=== PATIENT | male | born 1940 | race African-American/Black ===

== ENCOUNTER 2016-07-18 15:17 | Emergency (ER) | payer OTHER, MEDICAID ==
[2016-07-18 15:23] VITALS: BP 121/72; BMI 22.5
[2016-07-18] MEDS ORDERED: TORADOL 60 MG VIAL IM ONE (15:50)
[2016-07-18] MEDS ORDERED: TORADOL 60 MG VIAL ONE (15:50)
--- NOTE | 2016-07-18 15:51 | DR.EXTPAIN ---
HPI - Time seen Time seen: 15:39 - PCP Primary Care Physician: FARZANEH LARA - Complaint/Symptoms Chief Complaint Doctor Comments: Patient with a history of osteoarthritis of left knee. he states that he received knee injection a few weeks ago. He takel meloxicam 15mg daily by history. Chief Complaint:: EMS CALLED OUT TO PT HAVING LEFT KNEE PAIN UPON ARRIVAL PT WAS SITTING ON PORCH AND HE WAS NOT ABLE TO WALK PT ASSISTED TO STRETCHER PER EMS. - Source History Provided: Patient - Mode of arrival Mode of Arrival: EMS - Timing Onset of Chief Complaint: 07/17/16 PMH - PMH Past Medical History: Yes Past Medical History: Arthritis, CHF, COPD, Coronary Artery Disease, Dyslipidemia, GERD, Gout, Hypertension, Renal Disease Past Surgical History: Yes Surgical History: Other Past Surgical History Comment: PACEMAKER - Family History History of Family Medical Conditions: Yes Family Medical History: Diabetes Mellitus, [place], Coronary Artery Disease - Social History Does patient currently use any type of tobacco product: Yes Have you used tobacco products in the last 12 months: Yes Type of Tobacco Use: Cigarettes How many years tobacco product used: 50 Does any household member use tobacco: No Alcohol Use: None Do you use any recreational Drugs:: No Lives With: Family Lives Where: Home - infectious screening In the last 2 months have you had wt loss of >10#?: NO Have you had fever, night sweats or hemotysis?: No Have you traveled outside the country in the last 6 months?: No Isolation: Standard ROS - Review of Systems Constitutional: No Symptoms Reported Eyes: No Symptoms Reported ENTM: No Symptoms Reported Respiratoy: No Symptoms Reported Cardiovascular: No Symptoms Reported Gastrointestinal/Abdominal: No Symptoms Reported Genitourinary: No Symptoms Reported Neurological: No Symptoms Reported Musculoskeletal: No Symptoms Reported Integumentary: No Symptoms Reported Hematologic/Lymphatic: No Symptoms Reported Endocrine: No Symptoms Reported Psychiatric: No Symptoms Reported All Other Systems: Reviewed and Negative PE - Vital Signs Vitals: Pulse Rate 70 Respiratory Rate 22 Blood Pressure [Left Arm] 137/78 Blood Pressure [Right Arm] 140/88 Blood Pressure [Standing] 120/73 Blood Pressure [Sitting] 123/81 Blood Pressure [Lying] 124/81 Blood Pressure 121/72 O2 Sat by Pulse Oximetry 93 - Head Head Exam: Normal Inspection, Atraumatic - Eyes Eye exam: Normal Appearance, PERRL, EOMI - ENT ENT Exam: Normal Exam - Neck Neck Exam: Normal Inspection, Full ROM - Chest Chest Inspection: Normal Inspection - Respiratory Respiratory Exam: Normal Lung Sounds Bilat Respiratory Exam: Bilateral Clear to Auscultation - Cardiovascular Cardiovascular Exam: Regular Rate, Normal Rhythm - Abdominal Exam Abdominal Exam: Normal Inspection Abdominal Tenderness: negative: RUQ, RLQ, LUQ, LLQ, Epigastrium, Suprapubic, Diffuse, Mild, Moderate, Severe, Other - Extremities Extremities Exam: Joint Swelling (left knee) - Upper Extremities Shoulder Exam: Normal Inspection Arm Exam: Normal Inspection Elbow Exam: Normal Inspection Forearm Exam: Normal Inspection Hand Exam: Normal Inspection Neuromotor Exam: Normal Exam Neurosensory Exam: Normal Exam Hand Tendon Exam: Flexor Digitorium Profundus (Location) Upper Ext. Vascular Exam: Capillary Refill - Lower Extremities Hip/Pelvis Exam: Normal Inspection Upper Leg Exam: Normal Inspection Knee Exam: Tenderness, Deformity (left knee swollen, tender to palpation). negative: Effusion Lower Leg Exam: Normal Inspection Ankle Exam: Normal Inspection Foot/Toe Exam: Normal Inspection Neurovascular/Tendon Exam: Normal Capillary Refill Gait Exam: Antalgic - Back Back Exam: Normal Inspection - Neurological Neurological Exam: Alert, Oriented X3, CN II-XII Intact - Psychiatric Psychiatric Exam: Normal Affect - Skin Skin Exam: Warm, Dry, Intact Type of Lesion: Rash Distribution: Generalized - Diagnosis Discharge Problem: Osteoarthritis Qualifiers: Osteoarthritis location: knee Osteoarthritis type: primary Laterality: left Qualified Code(s): M17.12 - Unilateral primary osteoarthritis, left knee - Discharge Plan Condition: Stable - Follow ups/Referrals Follow ups/Referrals: Edwin Akhtar [Primary Care Provider] - 3 days - Instructions
== END 2016-07-18 16:15 | disposition home or self-care (01) ==
LOC: ER 15:23
DX: M17.12 Unilateral primary osteoarthritis, left knee (principal)
CPT/HCPCS: 96372; 99282; J1885

== ENCOUNTER 2016-08-19 20:39 | Emergency (ER) | payer OTHER, MEDICAID ==
[2016-08-19] MEDS ORDERED: SOLU-Medrol 125 MG VIAL ONE (20:47)
[2016-08-19 20:51] VITALS: BMI 25.0
[2016-08-19] MEDS ORDERED: SOLU-Medrol 125 MG VIAL IVP ONE (20:51)
[2016-08-19] MEDS ORDERED: DUONEB 0.5 MG/3 MG ONE (20:52)
--- NOTE | 2016-08-19 21:03 | RAD ---
Chest, one view Indication: Respiratory distress, shortness breath Comparison: 03/02/2016 Findings: Cardiac silhouette enlargement and cardiac leads appear stable. There is dense airspace di sease of the right mid to lower lung with hazy interstitial and airspace opacities of the left lung. No large pleural effusion or pneumothorax. Impression: Dense right lung opacities with mild left-sided disease, most suggestive for pneumonia. Asymmetric edema related to CHF is not completely excluded given cardiomegaly. Correlation and lorie nued radiographic followup recommended. Reported By:
--- NOTE | 2016-08-19 21:07 | DR.GENAD ---
HPI - PCP Primary Care Physician: FARZANEH - HPI Comment HPI Comment: PATIENT HERE VIA EMS IN SEVERE RESPIRATORY DISTRESS. DENIES FEVER. ON HOME OXYGEN BUT HIS MACHINE HAVE NOT BEING FUNCTIONING. - Complaint/Symptoms Chief Complaint Doctors Comments: REWSPIRATORY DISTRESS, COLD Chief Complaint:: PT STARTED HAVING BREATHING PROBLEMS THIS AM GOTTEN WORSE THRUOUT THE DAY. - Nurses notes reviewed Nurses Notes Review: Yes - Source History Provided: EMS - Mode of Arrival Mode of Arrival: EMS - Timing Onset of Chief Complaint: 08/19/16 Came on: Gradually - Duration Duration: Days - Severity Severity: Severe PMH - PMH Past Medical History: Yes Past Medical History: Alzheimers, Arthritis, CHF, COPD, Coronary Artery Disease , Dyslipidemia, GERD, Gout, Hypertension, Renal Disease Past Surgical History: Yes Surgical History: Other - Family History History of Family Medical Conditions: Yes Family Medical History: Diabetes Mellitus, [place], Coronary Artery Disease - Social History Do you use any recreational Drugs:: No Lives With: Family Lives Where: Home - infectious screening In the last 2 months have you had wt loss of >10#?: NO Have you had fever, night sweats or hemotysis?: No Have you traveled outside the country in the last 6 months?: No Isolation: Standard ROS - Review of Systems Constitutional: Chills, Weakness, Fatigue, Loss of Appetite. negative: Diaphoresis, Fever Eyes: negative: Eye Pain, Discharge ENTM: Nose Discharge, Nose Congestion. negative: Ear Pain, Throat Pain Respiratoy: Productive Cough, Non-Productive Cough, Short of Breath, Wheezing, Other (USING ). negative: Hemoptysis Cardiovascular: Chest Pain Gastrointestinal/Abdominal: negative: Abdominal Pain, Diarrhea, Nausea, Vomiting Genitourinary: Other (DECREASE URINE OUT PUT.). negative: Dysuria, Frequency, Hematuria Neurological: Weakness Musculoskeletal: Back Pain, Muscle Pain Integumentary: Lesions (LEFT BIG TOE. NECROTIC AREA PRESENT.) Hematologic/Lymphatic: Easy Bruising Endocrine: No Symptoms Reported All Other Systems: Reviewed and Negative PE - Vital Signs Vitals: Temperature 97.6 F Pulse Rate [Right Brachial] 70 Pulse Rate 72 Respiratory Rate 12 Blood Pressure [Left Arm] 147/88 Blood Pressure [Right Arm] 140/88 Blood Pressure [Standing] 120/73 Blood Pressure [Sitting] 123/81 Blood Pressure [Lying] 124/81 Blood Pressure 180/101 O2 Sat by Pulse Oximetry 100 - General Limitations: Altered Mental Status (PATIENT SLIGHTLY CONFUSE.) General Appearance: Alert, Anxious, In Distress - Head Head Exam: Normal Inspection - Eyes Eye exam: Normal Appearance, PERRL, EOMI. negative: Scleral Icterus, Conjunctival Injection, Nystagmus - ENT ENT Exam: Normal Oropharynx, Normal External Ear Exam, Mucous Membranes Dry External Ear Exam: Normal External Inspection. negative: Auricular Hematoma, Auricular Trauma, Mastoid Tenderness, Pain with Movement, External Tenderness, Periauricular Adenopathy TM/Canal Exam: Bilateral Normal Nose Exam: Normal Nose Exam Mouth Exam: Other (POOR DENTAL CARE, ). negative: Trismus, Lip Swelling, Tongue Elevation, Tongue Swelling Throat Exam: negative: Normal Inspection, Tonsillar Erythema, Tonsillar Exudate , R Peritonsillar Mass, L Peritonsillar Mass - Neck Neck Exam: Trachea Midline. negative: Tenderness, Meningismus, Lymphadenopathy - Chest Chest Inspection: Symmetric Chest Wall Rise - Respiratory Respiratory Exam: Accessory Muscle Use, Prolonged Expiratory Phase, Respiratory Distress. negative: Chest Wall Tenderness Respiratory Exam: Bilateral Wheezing, Bilateral Rhonchi, Right Rales, Upper Wheezing, Upper Rhonchi, Lower Wheezing, Lower Rhonchi - Cardiovascular Cardiovascular Exam: Regular Rate, Normal Rhythm, Normal Heart Sounds - Abdominal Exam Abdominal Exam: Normal Bowel Sounds, Soft. negative: Tenderness - Extremities Extremities Exam: Other (SMALL NECROTIC AREA ON LEFT BIG TOE.). negative: Edema - Back Back Exam: Normal Inspection - Neurologic Neurological Exam: Alert, CN II-XII Intact, Reflexes Normal. negative: Oriented X3, Motor Sensory Deficit - Psychiatric Psychiatric Exam: Anxious - Skin Skin Exam: Other (LT BIG TOE SMALL NECROTIC AREA.) [facility] - Additional Information Additional Information Obtained From: Family - Differential Diagnosis Differential Diagnosis: RESPIRATORY FAILURE, PNEUMONIA, COPD, CHF Course - Treatment Treatment: SEE ORDERS. PATIENT INTUBATED IN ED. DUO NEB, CONTINOUS NEB, ROCEPHIN , IV LEVAQUIN GIVEN IN ED. - Consultation Consultation Comments: DISCUSS PATIENT WITH DR MATSON/PARALEGAL INSTRUCTOR DR. RAMIREZ TRANSFER PATIENT TO HIGHER LEVEL OF CARE FACILITY. DR. NUNEZ, [facility] , CERTIFIED NURSES' AIDE ACCEPTED PATIENT FOR TRANSFER. - Education/Counseling Education/Counseling: Patient, Family, Education Educated On: Diagnosis ROR - Labs Reviewed Laboratory Results Reviewed?: Yes Result Diagrams: 08/19/16 20:35 08/19/16 20:35 Laboratory: WBC 6.7 X10^3/uL (3.6-10.0) 08/19/16 20:35 RBC 4.02 X10^6/uL (4.7-6.0) L 08/19/16 20:35 Hgb 11.0 g/dL (13.5-18.0) L 08/19/16 20:35 Hct 35.9 % (42.0-54.0) L 08/19/16 20:35 MCV 89.2 fL (80.0-100.0) 08/19/16 20:35 MCH 27.4 pg (27.0-34.0) 08/19/16 20:35 MCHC 30.7 g/dL (33.0-35.0) L 08/19/16 20:35 RDW 19.6 % (11.6-16.5) H 08/19/16 20:35 Plt Count 101 X10^3/uL (150.0-450.0) L 08/19/16 20:35 MPV 8.7 fL (7.4-11.0) 08/19/16 20:35 Neut % 60.2 % (42.0-75.0) 08/19/16 20:35 Lymph % 28.1 % (21.0-51.0) 08/19/16 20:35 Grand % 8.5 % (0.0-13.0) 08/19/16 20:35 Eos % 2.4 % (0.9-2.9) 08/19/16 20:35 Baso % 0.8 % (0.2-1.0) 08/19/16 20:35 Neut # 4.1 x10^3/uL (2.2-4.8) 08/19/16 20:35 Lymph # 1.9 X10^3/uL (1.3-2.9) 08/19/16 20:35 Grand # 0.6 x10^3/uL (0.3-0.8) 08/19/16 20:35 Eos # 0.2 x10^3/uL (0.0-0.2) 08/19/16 20:35 Baso # 0.1 X10^3/uL (0.0-0.1) 08/19/16 20:35 Absolute Nucleated RBC 0.2 /100WBC 08/19/16 20:35 Sample Site Rrda 08/20/16 00:50 ABG pH 7.380 (7.35-7.45) 08/20/16 00:50 ABG pCO2 36.0 mmHg (35.0-45.0) 08/20/16 00:50 ABG pO2 54.0 mmHg (80.0-100.0) L 08/20/16 00:50 ABG HCO3 21.3 mmol/L (22-26) L 08/20/16 00:50 ABG O2 Saturation 87.0 % (90-100) L 08/20/16 00:50 ABG Base Excess -3.3 mmol/L (-2.0-2.0) L 08/20/16 00:50 Artemio Test Pos 08/20/16 00:50 A-a Gradient 614.0 mmHg 08/20/16 00:50 FiO2 100 08/20/16 00:50 Blood Gas Comments Shirley abg well-js 08/20/16 00:50 Sodium 146 mmol/L (136-145) H 08/19/16 20:35 Corrected Sodium 147 mmol/L (136-145) H 08/19/16 20:35 Potassium 5.5 mmol/L (3.5-5.1) H 08/19/16 20:35 Chloride 112 mmol/L (98-107) H 08/19/16 20:35 Carbon Dioxide 23.1 mmol/L (21-32) 08/19/16 20:35 BUN 50 mg/dL (7-18) H 08/19/16 20:35 Creatinine 3.00 mg/dL (0.70-1.30) H 08/19/16 20:35 Est GFR (MDRD) Af Amer 26 (>60) L 08/19/16 20:35 Est GFR (MDRD) Non-Af 22 (>60) L 08/19/16 20:35 Glucose 136 mg/dL (65-99) H 08/19/16 20:35 Lactic Acid 2.0 mmol/L (0.4-2.0) 08/19/16 20:35 Calcium 9.5 mg/dL (8.5-10.1) 08/19/16 20:35 Corrected Calcium TNP 08/19/16 20:35 Total Bilirubin 2.00 mg/dL (0.2-1.0) H 08/19/16 20:35 AST 20 Units/L (15-37) 08/19/16 20:35 ALT 18 Units/L (12-78) 08/19/16 20:35 Alkaline Phosphatase 144 Units/L (46-116) H 08/19/16 20:35 Creatine Kinase 127 Units/L (39-308) 08/19/16 20:35 CK-MB (CK-2) 1.3 ng/mL (0-4.0) 08/19/16 20:35 CK/CKMB % Calc 1.0 % (<4) 08/19/16 20:35 Troponin I 0.06 ng/mL (0-1.5) 08/19/16 20:35 B-Natriuretic Peptide 2490 pg/mL (0-79) H* 08/19/16 20:35 Total Protein 9.0 g/dL (6.4-8.2) H 08/19/16 20:35 Albumin 3.6 g/dL (3.4-5.0) 08/19/16 20:35 Globulin 5.4 g/dL (2.5-4.5) H 08/19/16 20:35 Albumin/Globulin Ratio 0.7 Ratio (1.1-2.1) L 08/19/16 20:35 Specimen Type Catherized urine 08/19/16 22:57 Urine Color Yellow (YELLOW) 08/19/16 22:57 Urine Appearance Slightly hazy (CLEAR) 08/19/16 22:57 Urine pH 5.0 (5.0 - 8.0) 08/19/16 22:57 Ur Specific [employer] 1.015 (1.000-1.030) 08/19/16 22:57 Urine Protein 1+ (NEGATIVE) 08/19/16 22:57 Urine Glucose (UA) Negative (NEGATIVE) 08/19/16 22:57 Urine Ketones Negative (NEGATIVE) 08/19/16 22:57 Urine Occult Blood 1+ (NEGATIVE) 08/19/16 22:57 Urine Nitrite Negative (NEGATIVE) 08/19/16 22:57 Urine Bilirubin Negative (NEGATIVE) 08/19/16 22:57 Urine Urobilinogen Normal (NORMAL) 08/19/16 22:57 Ur Leukocyte Esterase 1+ (NEGATIVE) 08/19/16 22:57 Urine RBC 0-3 /HPF (NEGATIVE) 08/19/16 22:57 Urine WBC 6-8 /HPF (NEGATIVE) 08/19/16 22:57 Ur Squamous Epith Cells Rare /HPF (NEGATIVE) 08/19/16 22:57 Amorphous Sediment Trace /HPF (NEGATIVE) 08/19/16 22:57 Urine Bacteria 1+ /HPF (NEGATIVE) 08/19/16 22:57 Ur Culture Indicated? Yes/culture set up 08/19/16 22:57 - XRAY XRAY Interpreted by: Radiologist XRAY Findings: REPORT NOTED - EKG Rhythm: Paced (EKG NOTED) - Diagnosis Discharge Problem: COPD exacerbation Acute respiratory failure Qualifiers: Respiratory failure complication: hypoxia Qualified Code(s): J96.01 - Acute respiratory failure with hypoxia Pneumonia Qualifiers: Pneumonia type: due to unspecified organism Laterality: right Lung location: lower lobe of lung Qualified Code(s): J18.1 - Lobar pneumonia, unspecified organism UTI (urinary tract infection) Qualifiers: Urinary tract infection type: site unspecified Hematuria presence: without hematuria Qualified Code(s): N39.0 - Urinary tract infection, site not specified CHF (congestive heart failure) Qualifiers: Congestive heart failure type: combined Congestive heart failure chronicity: acute on chronic Qualified Code(s): I50.43 - Acute on chronic combined systolic (congestive) and diastolic (congestive) heart failure - Discharge [facility] Condition: Stable - Follow ups/Referrals Follow ups/Referrals: Edwin Akhtar [Primary Care Provider] - 3 days - Instructions
[2016-08-19 21:10] LABS: ABG BASE EXCESS -5.3 mmol/L (-2.0-2.0); ABG HCO3 21.2 mmol/L (22-26)
[2016-08-19 21:13] LABS: ABG ALLEN TEST POS
[2016-08-19 21:28] LABS: BLOOD UREA NITROGEN 50 mg/dL (7-18); CALCIUM 9.5 mg/dL (8.5-10.1); CARBON DIOXIDE 23.1 mmol/L (21-32); CHLORIDE 112 mmol/L (98-107); COR NA(FOR HYPERGLY) 147 mmol/L (136-145); GLUCOSE 136 mg/dL (65-99); TROPONIN I 0.06 ng/mL (0-1.5); eGFR BLACK RACES 26 (>60); eGFR NON BLACK RACES 22 (>60)
[2016-08-19 21:32] LABS: BASOPHILS # (AUTO) 0.1 X10^3/uL (0.0-0.1); BASOPHILS % (AUTO) 0.8 % (0.2-1.0); EOSINOPHILS # (AUTO) 0.2 x10^3/uL (0.0-0.2); EOSINOPHILS % (AUTO) 2.4 % (0.9-2.9); HEMATOCRIT 35.9 % (42.0-54.0); LYMPHOCYTES # (AUTO) 1.9 X10^3/uL (1.3-2.9); LYMPHOCYTES % (AUTO) 28.1 % (21.0-51.0); MEAN CORPUSCULAR HEMOGLOBIN 27.4 pg (27.0-34.0); MEAN CORPUSCULAR HGB CONC 30.7 g/dL (33.0-35.0); MEAN CORPUSCULAR VOLUME 89.2 fL (80.0-100.0); MEAN PLATELET VOLUME 8.7 fL (7.4-11.0); MONOCYTES # (AUTO) 0.6 x10^3/uL (0.3-0.8); MONOCYTES % (AUTO) 8.5 % (0.0-13.0); NEUTROPHILS # (AUTO) 4.1 x10^3/uL (2.2-4.8); NEUTROPHILS % (AUTO) 60.2 % (42.0-75.0); PLATELET COUNT 101 X10^3/uL (150.0-450.0); RED BLOOD COUNT 4.02 X10^6/uL (4.7-6.0); RED CELL DISTRIBUTION WIDTH 19.6 % (11.6-16.5); WHITE BLOOD COUNT 6.7 X10^3/uL (3.6-10.0)
[2016-08-19 21:33] LABS: ALANINE AMINOTRANSFERASE 18 Units/L (12-78); ALBUMIN 3.6 g/dL (3.4-5.0); ALKALINE PHOSPHATASE 144 Units/L (46-116); ASPARTATE AMINO TRANSFERASE 20 Units/L (15-37); CREATINE KINASE 127 Units/L (39-308); CREATINE KINASE MB 1.3 ng/mL (0-4.0)
[2016-08-19] MEDS ORDERED: VERSED IVP ONE (21:35)
[2016-08-19 21:39] LABS: SODIUM 146 mmol/L (136-145)
[2016-08-19 21:43] LABS: B-TYPE NATRIURETIC PEPTIDE 2490 pg/mL (0-79)
[2016-08-19] MEDS ORDERED: LASIX IVP ONE ×2 (21:44)
[2016-08-19] MEDS ORDERED: VERSED ONE ×2 (21:56→22:24)
[2016-08-19] MEDS ORDERED: QUELICIN (OR ANECTINE) ONE (21:57)
[2016-08-19] MEDS: QUELICIN (OR ANECTINE) IVP ONE (21:57)
[2016-08-19] MEDS ORDERED: NS 100 ML IV 100 ML IV ONE (22:23)
[2016-08-19] MEDS ORDERED: DIPRIVAN PREMIX 1 GM IV 1,000 MG/100 ML VIAL ONE (22:27)
--- NOTE | 2016-08-19 22:29 | RAD ---
EXAM: Chest X-ray INDICATION: Tube placement COMPARISION: Prior exam from earlier on the same day. TECHNIQUE: AP, single view FINDINGS: The endotracheal tube tip is 7 cm above the kimo. There is dense consolidation throughout the righ t lung which is increased compared to the prior exam. There is a right pleural effusion. The heart i s enlarged and there central vascular congestion. Left-sided pacemaker is present. The regional skel eton is intact. IMPRESSION: There is increasing consolidation throughout the right lung. The heart is enlarged and there central vascular congestion and interstitial edema. Reported By:
[2016-08-19] MEDS ORDERED: NS 250 ML IV 250 ML IV ONE (22:37)
[2016-08-19] MEDS ORDERED: VERSED 100 MG in NS 100 ML IV 80 ML IV PRN (22:38)
[2016-08-19 22:40] LABS: ABG BASE EXCESS -4.8 mmol/L (-2.0-2.0); ABG HCO3 22.1 mmol/L (22-26)
[2016-08-19 22:41] LABS: FRACTIONATED INSPIRED OXYGEN 100
[2016-08-19 22:42] LABS: ABG ALLEN TEST POS
[2016-08-19] MEDS ORDERED: ROCEPHIN 1 GM IV PREMIX * OUT OF STOCK 50 ML IV ONE (22:46)
[2016-08-19] MEDS ORDERED: ROCEPHIN VIAL 1 GM 1 GM in NS 50 ML IV + SPIKE MINIBAG* 50 ML IV ONE (22:50)
[2016-08-19] MEDS ORDERED: NS 250 ML IV 250 ML IV SCH (23:00)
[2016-08-19 23:08] LABS: BILIRUBIN,URINE NEGATIVE (NEGATIVE); BLOOD/HEMOGLOBIN,URINE 1+ (NEGATIVE); GLUCOSE, URINE NEGATIVE (NEGATIVE); KETONES,URINE NEGATIVE (NEGATIVE); LEUKOCYTE ESTERASE ,URINE 1+ (NEGATIVE); NITRITES,URINE NEGATIVE (NEGATIVE); PROTEIN,URINE 1+ (NEGATIVE); UROBILINOGEN,URINE NORMAL (NORMAL)
[2016-08-19 23:15] LABS: APPEARANCE,URINE SLIGHTLY HAZY (CLEAR); COLOR,URINE YELLOW (YELLOW)
[2016-08-19 23:16] LABS: AMORPHOUS SEDIMENT,UR TRACE /HPF (NEGATIVE); BACTERIA,URINE 1+ /HPF (NEGATIVE); RBC,URINE 0-3 /HPF (NEGATIVE); SQUAMOUS EPITHELIAL CELL,UR RARE /HPF (NEGATIVE)
[2016-08-19 23:20] LABS: ABG BASE EXCESS -4.4 mmol/L (-2.0-2.0)
[2016-08-19 23:21] LABS: ABG ALLEN TEST POS; FRACTIONATED INSPIRED OXYGEN 100
[2016-08-19] MEDS ORDERED: LEVAQUIN PREMIX IV 500 MG 500 MG/100 ML BAG IV ONE (23:52)
[2016-08-19] MEDS ORDERED: ZITHROMAX INJ 500 MG VIAL 500 MG in NS 250 ML IV 250 ML IV SCH (23:52)
[2016-08-20] MEDS ORDERED: LEVAQUIN PREMIX IV 500 MG 500 MG/100 ML BAG IV ONE (00:01)
[2016-08-20 00:59] LABS: ABG BASE EXCESS -3.3 mmol/L (-2.0-2.0); ABG HCO3 21.3 mmol/L (22-26)
[2016-08-20 01:00] LABS: ABG ALLEN TEST POS; FRACTIONATED INSPIRED OXYGEN 100
[2016-08-20 01:24] VITALS: BP 147/88
[2016-08-20] MEDS: QUELICIN (OR ANECTINE) IVP ONE (02:08)
== END 2016-08-20 01:30 | disposition short-term general hospital (02) ==
LOC: ER 20:45
PROC: 0T9B70Z Drainage of Bladder with Drainage Device, Via Natural or Artificial Opening (ICD-10-PCS; principal; 2016-08-19)
PROC: 0BH17EZ Insertion of Endotracheal Airway into Trachea, Via Natural or Artificial Opening (ICD-10-PCS; principal; 2016-08-19)
DX: J80 Acute respiratory distress syndrome (principal); J18.1 Lobar pneumonia, unspecified organism; N39.0 Urinary tract infection, site not specified; I50.43 Acute on chronic combined systolic (congestive) and diastolic (congestive) heart failure; J44.1 Chronic obstructive pulmonary disease with (acute) exacerbation
CPT/HCPCS: 31500; 36415; 36600; 51702; 71010; 80053; 81001; 82550; 82553; 82803; 83605; 83880; 84484; 85025; 87086; 93005; 93010; 96365; 96367; 96374; 96375; 99284; 99285; 99291; 99292; A4222; J0330; J0696; J1940; J1956; J2250; J2930; J3490; J7620

== ENCOUNTER → 2017-05-31 | Outpatient (CLI) | payer OTHER, MEDICAID ==
--- NOTE | 2017-05-31 10:40 | CT ---
HISTORY: Abdominal aortic aneurysm with hypertension and renal disease. Study: CT chest without contrast Comparison: CT chest dated January 18, 2012. Technique: Multiple axial images of the chest were obtained from the thoracic inlet to the upper abdo men without the administration of IV contrast. MIP images were obtained. Dose reduction techniques in cluding Automated Exposure Control (AEC) and adjustment of mA and kV were utilized. Findings: Study limited secondary to lack of IV contrast. The mediastinum does not demonstrate significant pathological lymphadenopathy. 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 Calcification of the false lumen with likely associated thrombus is not significantly changed given technique and limitations of study. Aneurysmal dilatation of the descending thoracic a james measures 6.1 x 6.9 cm in greatest dimension (previously measured 6.0 x 5.8 cm). Cardiomegaly. Biapical scarring. Calcified right lower lobe pulmonary nodule. No suspicious pulmonary nodule, mass, focal consolidation, or pneumothorax. Persistent small left pleural effusion. Diverticular disease o f the visualized large bowel without evidence of diverticulitis. Chronic atrophy of the kidneys. Marcie ining upper abdominal structures are unremarkable. Degenerative changes of the spine. No aggressive o sseous lesions. IMPRESSION: 1. Enlarging thoracic aortic aneurysm, which measures 6.9 cm in greatest dimension. 2. Other chronic findings as above. Reported By:
== END ==
LOC: RAD 09:10
PROVIDERS: ATTEND Physician Assistant
DX: I71.2 Thoracic aortic aneurysm, without rupture (principal)
CPT/HCPCS: 71250

== ENCOUNTER 2017-07-07 16:08 | Observation (INO) | payer OTHER, MEDICAID ==
[2017-07-07] MEDS ORDERED: HYDROGEN PEROXIDE 3% ONE (16:36)
[2017-07-07 16:42] LABS: BASOPHILS % (AUTO) 0.6 % (0.2-1.0); EOSINOPHILS # (AUTO) 0.3 x10^3/uL (0.0-0.2); EOSINOPHILS % (AUTO) 3.6 % (0.9-2.9); HEMATOCRIT 32.3 % (42.0-54.0); HEMOGLOBIN 10.4 g/dL (13.5-18.0); LYMPHOCYTES # (AUTO) 1.5 X10^3/uL (1.3-2.9); LYMPHOCYTES % (AUTO) 19.3 % (21.0-51.0); MEAN CORPUSCULAR HEMOGLOBIN 29.1 pg (27.0-34.0); MEAN CORPUSCULAR HGB CONC 32.2 g/dL (33.0-35.0); MEAN CORPUSCULAR VOLUME 90.3 fL (80.0-100.0); MEAN PLATELET VOLUME 7.6 fL (7.4-11.0); MONOCYTES # (AUTO) 0.7 x10^3/uL (0.3-0.8); MONOCYTES % (AUTO) 9.6 % (0.0-13.0); NEUTROPHILS # (AUTO) 5.1 x10^3/uL (2.2-4.8); NEUTROPHILS % (AUTO) 66.9 % (42.0-75.0); PLATELET COUNT 138 X10^3/uL (150.0-450.0); RED BLOOD COUNT 3.58 X10^6/uL (4.7-6.0); RED CELL DISTRIBUTION WIDTH 16.8 % (11.6-16.5); WHITE BLOOD COUNT 7.7 X10^3/uL (3.6-10.0)
--- NOTE | 2017-07-07 17:02 | DR.GENAD ---
HPI - PCP Primary Care Physician: DR. MOY - HPI Comment HPI Comment: IN ED, ACTIVE BRIGHT RED BLEEDING NOTED. - Complaint/Symptoms Chief Complaint Doctors Comments: PATIENT HAD DENTAL EXTRACTION OF ALL HIS LOWER TEETH. AT HOME, IT STARTED BLEEDING. HE IS NOT CURRENTLY ON BLOOD THINNERS. Chief Complaint:: PT C/O HAVING TEETH PULLED AND BLEEDING NOTED THE WHOLE ROW OF PTS BOTTOM TEETH HAVE BEEN PULLED AND ARE ACTIVELY BLEEDING APPROX 50 ML OF BLOOD NOTED ,, PT STATES HE HAS BEEN OFF OF HIS BLOOD THINERS FOR A MONTH PT GIVEN GAUZE FOR PRESSURE AND BLEEDING IS SLOWING DOWN,,BR - Nurses notes reviewed Nurses Notes Review: Yes - Source History Provided: Patient, EMS - Mode of Arrival Mode of Arrival: EMS - Timing Onset of Chief Complaint: 07/07/17 Came on: Suddenly - Duration Duration: Constant Duration: Hours - Severity Severity: Moderate PMH - PMH Past Medical History: Yes Past Medical History: Alzheimers, Arthritis, CHF, COPD, Coronary Artery Disease , Dyslipidemia, GERD, Gout, Hypertension, Renal Disease Past Surgical History: Yes Surgical History: Other - Family History History of Family Medical Conditions: Yes Family Medical History: Diabetes Mellitus, [place], Coronary Artery Disease - Social History Does patient currently use any type of tobacco product: Yes Have you used tobacco products in the last 12 months: Yes Type of Tobacco Use: None Does any household member use tobacco: No Alcohol Use: None Do you use any recreational Drugs:: No Lives With: Family Lives Where: Home - infectious screening In the last 2 months have you had wt loss of >10#?: NO Have you had fever, night sweats or hemotysis?: No Have you traveled outside the country in the last 6 months?: No Isolation: Standard ROS - Review of Systems Constitutional: No Symptoms Reported Eyes: No Symptoms Reported ENTM: No Symptoms Reported Respiratoy: No Symptoms Reported Cardiovascular: No Symptoms Reported Gastrointestinal/Abdominal: No Symptoms Reported Genitourinary: No Symptoms Reported Neurological: No Symptoms Reported Musculoskeletal: No Symptoms Reported Integumentary: No Symptoms Reported Hematologic/Lymphatic: Anemia All Other Systems: Reviewed and Negative PE - Vital Signs Vitals: Temperature 98.8 F Pulse Rate 70 Respiratory Rate 18 Blood Pressure [Left Arm] 147/88 Blood Pressure [Right Arm] 140/88 Blood Pressure [Standing] 120/73 Blood Pressure [Sitting] 123/81 Blood Pressure [Lying] 124/81 Blood Pressure 166/97 O2 Sat by Pulse Oximetry 96 - General Limitations: No Limitations General Appearance: Alert - Head Head Exam: Normal Inspection - Eyes Eye exam: Normal Appearance - ENT ENT Exam: Normal External Ear Exam External Ear Exam: Normal External Inspection TM/Canal Exam: Bilateral Normal Nose Exam: Other (NONE) Mouth Exam: Other (MULTIPLE TEETH LOWER JAW EXTRATED WITH HEMORRHAGE.) Throat Exam: Normal Inspection - Neck Neck Exam: Trachea Midline - Chest Chest Inspection: Symmetric Chest Wall Rise - Respiratory Respiratory Exam: Bilateral Clear to Auscultation - Cardiovascular Cardiovascular Exam: Regular Rate, Normal Rhythm, Normal Heart Sounds - Abdominal Exam Abdominal Exam: Normal Bowel Sounds, Soft. negative: Tenderness - Extremities Extremities Exam: Normal Inspection - Back Back Exam: Normal Inspection - Neurologic Neurological Exam: Alert, Oriented X3 - Psychiatric Psychiatric Exam: Anxious - Skin Skin Exam: Normal Color MDM - Differential Diagnosis Differential Diagnosis: DENTAL EXTRATIONMULTIPLE TEETH FROM LOWER JAW WITH BLEEDING. Course - Treatment Treatment: SEE ORDERS. BLEEDING NOT STOPPING WITH PRESSURE AND STEVAN BAG APPLICATION. - Consultation Consultation Comments: DISCUSS PATIENT WITH DR. MATSON. HE WILL ADMIT PATIENT. - Education/Counseling Education/Counseling: Patient, Education Educated On: Diagnosis, Needs for Follow Up ROR - Labs Reviewed Laboratory Results Reviewed?: Yes Result Diagrams: 07/07/17 16:31 Laboratory: WBC 7.7 X10^3/uL (3.6-10.0) 07/07/17 16:31 RBC 3.58 X10^6/uL (4.7-6.0) L 07/07/17 16:31 Hgb 10.4 g/dL (13.5-18.0) L 07/07/17 16:31 Hct 32.3 % (42.0-54.0) L 07/07/17 16:31 MCV 90.3 fL (80.0-100.0) 07/07/17 16:31 MCH 29.1 pg (27.0-34.0) 07/07/17 16:31 MCHC 32.2 g/dL (33.0-35.0) L 07/07/17 16:31 RDW 16.8 % (11.6-16.5) H 07/07/17 16:31 Plt Count 138 X10^3/uL (150.0-450.0) L 07/07/17 16:31 MPV 7.6 fL (7.4-11.0) 07/07/17 16:31 Neut % (Auto) 66.9 % (42.0-75.0) 07/07/17 16:31 Lymph % (Auto) 19.3 % (21.0-51.0) L 07/07/17 16:31 [place] % (Auto) 9.6 % (0.0-13.0) 07/07/17 16:31 Eos % (Auto) 3.6 % (0.9-2.9) H 07/07/17 16:31 Baso % (Auto) 0.6 % (0.2-1.0) 07/07/17 16:31 Neut # (Auto) 5.1 x10^3/uL (2.2-4.8) H 07/07/17 16:31 Lymph # (Auto) 1.5 X10^3/uL (1.3-2.9) 07/07/17 16:31 [place] # (Auto) 0.7 x10^3/uL (0.3-0.8) 07/07/17 16:31 Eos # (Auto) 0.3 x10^3/uL (0.0-0.2) H 07/07/17 16:31 Baso # (Auto) 0.0 X10^3/uL (0.0-0.1) 07/07/17 16:31 Absolute Nucleated RBC 0.0 /100WBC 07/07/17 16:31 INR Target Range - 07/07/17 16:31 INR 1.04 (0.8-1.3) 07/07/17 16:31 APTT 32.0 SECONDS (22.9-36.5) 07/07/17 16:31 PTT Comment - 07/07/17 16:31 PTH Intact Cancelled 07/07/17 16:31 Calcium (PTH Intact) Cancelled 07/07/17 16:31 - Diagnosis Discharge Problem: Status post tooth extraction, Hemorrhage - Discharge Plan Condition: Stable - Follow ups/Referrals Follow ups/Referrals: Edwin Moy [Primary Care Provider] - 3 days - Instructions Additional Instructions: POST EXTRACTION MULTIPLE TOOTH EXTRACTION WITH HEMORRHAGE.
[2017-07-07 18:41] LABS: HEMATOCRIT 33.3 % (42.0-54.0); HEMOGLOBIN 10.8 g/dL (13.5-18.0)
[2017-07-07 18:50] LABS: CKMB % 0.7 % (<4); CREATINE KINASE MB 1.5 ng/mL (0-4.0); TROPONIN I 0.08 ng/mL (0-1.5)
[2017-07-07 20:06] VITALS: BMI 23.3
[2017-07-07] MEDS: NS 1000 ML 1,000 ML IV SCH (20:14)
[2017-07-07] MEDS: COREG TAB 25 MG PO SCH (20:14)
[2017-07-07] MEDS: DUONEB 0.5 MG/3 MG NEB SCH (20:48)
[2017-07-07] MEDS: APRESOLINE TAB 25 MG PO SCH (22:01)
[2017-07-07] MEDS: ISOSORBIDE DINITRATE PO SCH (22:02)
[2017-07-08 01:35] LABS: BILIRUBIN,URINE NEGATIVE (NEGATIVE); BLOOD/HEMOGLOBIN,URINE NEGATIVE (NEGATIVE); GLUCOSE, URINE NEGATIVE (NEGATIVE); KETONES,URINE NEGATIVE (NEGATIVE); LEUKOCYTE ESTERASE ,URINE 1+ (NEGATIVE); NITRITES,URINE POSITIVE (NEGATIVE); PROTEIN,URINE 2+ (NEGATIVE); UROBILINOGEN,URINE NORMAL (NORMAL)
[2017-07-08 01:38] LABS: APPEARANCE,URINE HAZY (CLEAR); COLOR,URINE YELLOW (YELLOW)
[2017-07-08 01:45] LABS: BACTERIA,URINE 2+ /HPF (NEGATIVE); RBC,URINE 0-2 /HPF (NONE SEEN); SQUAMOUS EPITHELIAL CELL,UR FEW /HPF (NEGATIVE)
[2017-07-08 01:45] LABS: CKMB % 0.6 % (<4); TROPONIN I 0.14 ng/mL (0-1.5)
[2017-07-08] MEDS: APRESOLINE TAB 25 MG PO SCH ×3 (05:42→22:07)
[2017-07-08] MEDS: ISOSORBIDE DINITRATE PO SCH ×3 (05:42→22:07)
[2017-07-08 06:49] LABS: BASOPHILS % (AUTO) 0.6 % (0.2-1.0); EOSINOPHILS # (AUTO) 0.1 x10^3/uL (0.0-0.2); EOSINOPHILS % (AUTO) 0.8 % (0.9-2.9); HEMATOCRIT 30.2 % (42.0-54.0); HEMOGLOBIN 9.6 g/dL (13.5-18.0); LYMPHOCYTES # (AUTO) 1.6 X10^3/uL (1.3-2.9); LYMPHOCYTES % (AUTO) 20.3 % (21.0-51.0); MEAN CORPUSCULAR HGB CONC 31.7 g/dL (33.0-35.0); MEAN CORPUSCULAR VOLUME 91.5 fL (80.0-100.0); MEAN PLATELET VOLUME 8.1 fL (7.4-11.0); MONOCYTES # (AUTO) 0.9 x10^3/uL (0.3-0.8); MONOCYTES % (AUTO) 10.8 % (0.0-13.0); NEUTROPHILS # (AUTO) 5.5 x10^3/uL (2.2-4.8); NEUTROPHILS % (AUTO) 67.5 % (42.0-75.0); PLATELET COUNT 120 X10^3/uL (150.0-450.0); RED BLOOD COUNT 3.31 X10^6/uL (4.7-6.0); RED CELL DISTRIBUTION WIDTH 16.7 % (11.6-16.5); WHITE BLOOD COUNT 8.1 X10^3/uL (3.6-10.0)
[2017-07-08 06:56] LABS: ALBUMIN 3.1 g/dL (3.4-5.0); CALCIUM 8.7 mg/dL (8.5-10.1); CARBON DIOXIDE 25.6 mmol/L (21-32); COR CA(FOR HYPOALB) 9.4 mg/dL (8.5-10.1); CREATININE 3.35 mg/dL (0.70-1.30); TOTAL PROTEIN 7.6 g/dL (6.4-8.2)
[2017-07-08 07:02] LABS: CKMB % 0.7 % (<4); CREATINE KINASE 146 Units/L (39-308); CREATINE KINASE MB < 1.0 ng/mL (0-4.0); TROPONIN I 0.15 ng/mL (0-1.5)
[2017-07-08] MEDS: NS 1000 ML 1,000 ML IV SCH ×2 (08:17→23:07)
[2017-07-08] MEDS ORDERED: NORVASC TAB 2.5 MG ONE (08:28)
[2017-07-08] MEDS: COREG TAB 25 MG PO SCH ×2 (08:47→20:18)
[2017-07-08] MEDS: NORVASC TAB 2.5 MG PO SCH (08:47)
[2017-07-08] MEDS: DUONEB 0.5 MG/3 MG NEB SCH ×4 (08:54→21:01)
[2017-07-08] MEDS: ROCEPHIN VIAL 1 GM 1 GM in NS 100 ML IV + SPIKE MINIBAG* 100 ML IV SCH ×2 (09:44→09:45)
--- NOTE | 2017-07-08 13:26 | DR.H&P ---
H&P - History & Physical for Day of: H&P Date: 07/07/17 - Chief Complaint Chief Complaint: bleeding gums after dental procedure - Allergies Allergies/Adverse Reactions: Allergies Allergy/AdvReac Type Severity Reaction Status Date / Time No Known Drug Allergies Allergy Verified 07/07/17 16:18 - History of Present Illness History of Present Illness: is a 77 year old patient of ours who presented to the emergency room via EMS with reports of bleeding of gums following a dental procedure. Patient reports he had entire row of bottom teeth pulled recently. Patient reports he is on blood thinners normally but has been off for the last month. Approximately 50ml blood noted in container at bedside. Patient was given gauze to apply pressure. Hw is also noted with complaints of generalized weakness. On arrival, his vitals were 98.8, 70, 18, 96 % RA, 166/97. Labs were obtained. Abnormal lab values include the following: RBC 3.58, Hgb 10.4, 10.8, Hct 32.3, 33.3, MCHC 32.2, RDW 16.8, Plt Count 138. spoke with at the [facility]. recommended applying tea bags to the lower gums. Patient was admitted to the hospital for further evaluation and treatment. he was started on normal saline at 50ml/hr. We plan to follow up with AM labs and continue to monitor patient. - Past Medical History Past Medical History: Alzheimers, Arthritis, CHF, COPD, Coronary Artery Disease , Dyslipidemia, GERD, Gout, Hypertension, Renal Disease Additional Medical History: Cardiac Arrhythmia, Thoracic Aneurysm, Vision deficit, Back Pain, Previous Blood Transfusion - Past Surgical History Surgical History: Angioplasty/Stents, Other Additional Surgical History: Pacemaker - Family History Family Medical History: Diabetes Mellitus, [place], Coronary Artery Disease - Social History Does patient currently use any type of tobacco product: No Have you used tobacco products in the last 12 months: No Type of Tobacco Use: None Does any household member use tobacco: No Alcohol Use: None Drug Use: None - Medications Home Medications: Famotidine [PEPCID TAB 20 MG *] 1 tab PO DAILY 07/07/17 [History Confirmed 07/07] Hydralazine HCl [Apresoline Tab 25 mg] 1 tab PO TID 07/07/17 [History Confirmed 07/07/17] Ipratropium/Albuterol Nebule [DUONEB 0.5 MG/3 MG NEBULE *] 1 nebule NEB QID 02/13 [History Confirmed 07/07/17] Isosorbide Dinitrate 10 mg PO TID 07/07/17 [History Confirmed 07/07/17] - Review of Systems Constitutional: Weakness Eyes: No Symptoms Reported ENT: Other (uncontrolled bleeding from gums following extraction) Respiratory: No Symptoms Reported Cardiovascular: No Symptoms Reported Gastrointestinal: No Symptoms Reported Genitourinary: No Symptoms Reported Musculoskeletal: No Symptoms Reported Skin: No Symptoms Reported Neurological: Weakness - Physical Exam Vital Signs: Temperature 98.9 F Pulse Rate [Left Brachial] 73 Pulse Rate 70 Respiratory Rate 20 Blood Pressure [Left Arm] 133/76 Blood Pressure [Right Arm] 140/88 Blood Pressure [Standing] 120/73 Blood Pressure [Sitting] 123/81 Blood Pressure [Lying] 124/81 Blood Pressure 166/97 O2 Sat by Pulse Oximetry 92 Oriented: Normal Eyes: Normal Ear: Normal Nose: Normal Throat: Normal Respiratory: Clear Throughout Cardiovascular: Normal : Normal Auscultation: Bowel Sounds: Normal Palpation: Normal Tenderness: Normal Skin: Normal Musculoskeletal: Normal Psychiatric: Normal Mood Description: Calm Affect: Normal Speech Pattern: Clear - Assessment/Plan (1) Hemorrhage Status: Acute Plan: admit, monitor bleeding (2) Status post tooth extraction Status: Acute
[2017-07-08] MEDS: LASIX PO SCH ×2 (14:00→20:18)
[2017-07-08] MEDS: PEPCID TAB 20 MG PO SCH (14:00)
[2017-07-08] MEDS: ZYLOPRIM PO SCH (14:00)
[2017-07-09] MEDS: APRESOLINE TAB 25 MG PO SCH ×2 (05:19→16:34)
[2017-07-09] MEDS: ISOSORBIDE DINITRATE PO SCH ×2 (05:20→16:35)
[2017-07-09 06:25] LABS: BASOPHILS % (AUTO) 0.5 % (0.2-1.0); EOSINOPHILS # (AUTO) 0.1 x10^3/uL (0.0-0.2); EOSINOPHILS % (AUTO) 1.5 % (0.9-2.9); HEMATOCRIT 26.6 % (42.0-54.0); HEMOGLOBIN 8.5 g/dL (13.5-18.0); LYMPHOCYTES # (AUTO) 1.5 X10^3/uL (1.3-2.9); LYMPHOCYTES % (AUTO) 19.5 % (21.0-51.0); MEAN CORPUSCULAR HEMOGLOBIN 29.1 pg (27.0-34.0); MEAN CORPUSCULAR VOLUME 90.9 fL (80.0-100.0); MEAN PLATELET VOLUME 8.3 fL (7.4-11.0); MONOCYTES # (AUTO) 0.9 x10^3/uL (0.3-0.8); MONOCYTES % (AUTO) 12.1 % (0.0-13.0); NEUTROPHILS % (AUTO) 66.4 % (42.0-75.0); PLATELET COUNT 107 X10^3/uL (150.0-450.0); RED BLOOD COUNT 2.93 X10^6/uL (4.7-6.0); WHITE BLOOD COUNT 7.6 X10^3/uL (3.6-10.0)
[2017-07-09 06:40] LABS: ALBUMIN 2.7 g/dL (3.4-5.0); CALCIUM 8.6 mg/dL (8.5-10.1); CARBON DIOXIDE 27.2 mmol/L (21-32); COR CA(FOR HYPOALB) 9.6 mg/dL (8.5-10.1); CREATININE 3.16 mg/dL (0.70-1.30); TOTAL PROTEIN 7.2 g/dL (6.4-8.2)
[2017-07-09] MEDS ORDERED: NORVASC TAB 2.5 MG ONE (09:04)
[2017-07-09] MEDS: DUONEB 0.5 MG/3 MG NEB SCH (09:09)
[2017-07-09] MEDS: ROCEPHIN VIAL 1 GM 1 GM in NS 100 ML IV + SPIKE MINIBAG* 100 ML IV SCH (09:42)
[2017-07-09] MEDS: COREG TAB 25 MG PO SCH (09:43)
[2017-07-09] MEDS: PEPCID TAB 20 MG PO SCH (09:43)
[2017-07-09] MEDS: NORVASC TAB 2.5 MG PO SCH (09:43)
[2017-07-09] MEDS: LASIX PO SCH (09:43)
[2017-07-09] MEDS: ZYLOPRIM PO SCH (09:43)
[2017-07-09 13:10] VITALS: BP 144/82
[2017-07-09] MEDS: NS 1000 ML 1,000 ML IV SCH (14:33)
== END 2017-07-09 16:10 | disposition home or self-care (01) ==
LOC: ER 16:12 → MED/SURG 18:18
PROVIDERS: ADMIT Internal Medicine; ATTEND Internal Medicine
DX: K91.841 Postprocedural hemorrhage of a digestive system organ or structure following other procedure (principal); B96.20 Unspecified Escherichia coli [E. coli] as the cause of diseases classified elsewhere; Y84.8 Other medical procedures as the cause of abnormal reaction of the patient, or of later complication, without mention of misadventure at the time of the procedure; Y92.9 Unspecified place or not applicable
CPT/HCPCS: 36415; 80053; 80061; 81001; 82550; 82553; 84484; 85014; 85018; 85025; 85610; 85730; 87086; 87088; 87186; 94640; 94760; 96365; 99283; 99284; A4222; G0378; J0696; J7620

== ENCOUNTER → 2017-07-15 | Outpatient (CLI) | payer OTHER, MEDICAID | END | disposition home or self-care (01) | DRG 316 | LOC: RAD 12:48 | PROVIDERS: ATTEND Physician Assistant | DX: I42.9 Cardiomyopathy, unspecified (principal); I35.1 Nonrheumatic aortic (valve) insufficiency; I34.0 Nonrheumatic mitral (valve) insufficiency | CPT/HCPCS: 93306 ==

== ENCOUNTER 2018-04-11 14:32 | Inpatient (IN) ==
[2018-04-11 14:48] VITALS: BMI 23.1
[2018-04-11 15:19] LABS: ABG ALLEN TEST POS; ABG BASE EXCESS -4.5 mmol/L (-2.0-2.0); ABG HCO3 21.1 mmol/L (22-26)
--- NOTE | 2018-04-11 15:22 | DR.SOBA ---
HPI Time Seen Time Seen by Provider: 04/11/18 15:11 Primary Care Physician Primary Care Physician: FARZANEH Lee Chief Complaint:: PT. C/O SHORTNESS OF BREATH. DAUGHTER STATES HAS BEEN SICK FOR ABOUT A MONTH WITH A BAD COLD. PT. HAS HAD A PRODUCTIVE COUGH. Source History Provided: Patient and Family Member Mode of Arrival Mode of Arrival: Ambulatory Timing Onset of Chief Complaint: 03/12/18 PMH PMH Past Medical History: Yes Past Medical History: Alzheimers, Arthritis, CHF, COPD, Coronary Artery Disease, Dyslipidemia, GERD, Gout, Hypertension and Renal Disease Past Surgical History: Yes Surgical History: Angioplasty/Stents and Other Family History History of Family Medical Conditions: Yes Family Medical History: Diabetes Mellitus, [place] and Coronary Artery Disease Social History Does patient currently use any type of tobacco product: No Have you used tobacco products in the last 12 months: No Type of Tobacco Use: None Does any household member use tobacco: No Alcohol Use: None Do you use any recreational Drugs:: No Lives With: Alone Lives Where: Home infectious screening In the last 2 months have you had wt loss of >10#?: NO Have you had fever, night sweats or hemotysis?: No Have you traveled outside the country in the last 6 months?: No Isolation: Standard PE Vital Signs Vitals: Temperature 97 F Pulse Rate [Right Brachial] 70 Pulse Rate 75 Respiratory Rate 18 Blood Pressure [Left Arm] 144/82 Blood Pressure [Right Arm] 140/93 Blood Pressure [Standing] 120/73 Blood Pressure [Sitting] 123/81 Blood Pressure [Lying] 124/81 Blood Pressure 133/75 O2 Sat by Pulse Oximetry 93 ROR Labs Reviewed Result Diagrams: 04/11/18 15:22 04/11/18 15:22 Laboratory: 04/11/18 15:57 Sputum - Expectorated Sputum - Final WBC 4.6 X10^3/uL (3.6-10.0) 04/11/18 15:22 RBC 3.11 X10^6/uL (4.7-6.0) L 04/11/18 15:22 Hgb 8.7 g/dL (13.5-18.0) L 04/11/18 15:22 Hct 28.6 % (42.0-54.0) L 04/11/18 15:22 MCV 92.2 fL (80.0-100.0) 04/11/18 15: MCH 27.9 pg (27.0-34.0) 04/11/18 15: MCHC 30.2 g/dL (33.0-35.0) L 04/11/18: RDW 19.2 % (11.6-16.5) H 04/11/18 15: Plt Count 207 X10^3/uL (150.0-450.0) 04/11/18: MPV 7.7 fL (7.4-11.0) 04/11/18 15: Neut % (Auto) 67.6 % (42.0-75.0) 04/11/18: Lymph % (Auto) 21.1 % (21.0-51.0) 04/11/18: [place] % (Auto) 8.5 % (0.0-13.0) 04/11/18 15: Eos % (Auto) 1.8 % (0.9-2.9) 04/11/18: Baso % (Auto) 1.0 % (0.2-1.0) 04/11/18: Neut # (Auto) 3.1 x10^3/uL (2.2-4.8) 04/11/18 15: Lymph # (Auto) 1.0 X10^3/uL (1.3-2.9) L 04/11/18 15: [place] # (Auto) 0.4 x10^3/uL (0.3-0.8) 04/11/18: Eos # (Auto) 0.1 x10^3/uL (0.0-0.2) 04/11/18: Baso # (Auto) 0.0 X10^3/uL (0.0-0.1) 04/11/18: Absolute Nucleated RBC 0.1 /100WBC 04/11/18: Sample Site Rrad 04/11/18 15:03 ABG pH 7.330 (7.35-7.45) L 04/11/18 15:03 ABG pCO2 40.0 mmHg (35.0-45.0) 04/11/18 15:03 ABG pO2 67.0 mmHg (80.0-100.0) L 04/11/18 15:03 ABG HCO3 21.1 mmol/L (22-26) L 04/11/18 15:03 ABG O2 Saturation 91.0 % (90-100) 04/11/18 15:03 ABG Base Excess -4.5 mmol/L (-2.0-2.0) L 04/11/18 15:03 Artemio Test Pos 04/11/18 15:03 A-a Gradient 83.0 mmHg 04/11/18 15:03 FiO2 28.0 04/11/18 15:03 Blood Gas Comments Pt dora well elj 04/11/18 15:03 Sodium 145 mmol/L (136-145) 04/11/18 15:22 Corrected Sodium 147 mmol/L (136-145) H 04/11/18 15:22 Potassium 4.9 mmol/L (3.5-5.1) 04/11/18 15:22 Chloride 112 mmol/L (98-107) H 04/11/18 15:22 Carbon Dioxide 22.3 mmol/L (21-32) 04/11/18 15:22 BUN 44 mg/dL (7-18) H 04/11/18 15:22 Creatinine 3.32 mg/dL (0.70-1.30) H 04/11/18 15:22 Est GFR (MDRD) Af Amer 23 (>60) L 04/11/18 15:22 Est GFR (MDRD) Non-Af 19 (>60) L 04/11/18 15:22 Glucose 163 mg/dL (65-99) H 04/11/18 15:22 Lactic Acid 1.3 mmol/L (0.4-2.0) 04/11/18 15:22 Calcium 8.6 mg/dL (8.5-10.1) 04/11/18 15:22 Corrected Calcium 9.6 mg/dL (8.5-10.1) 04/11/18 15:22 Total Bilirubin 0.90 mg/dL (0.2-1.0) 04/11/18 15:22 AST 22 Units/L (15-37) 04/11/18 15:22 ALT 26 Units/L (12-78) 04/11/18 15:22 Alkaline Phosphatase 125 Units/L (46-116) H 04/11/18 15:22 Creatine Kinase 99 Units/L (39-308) 04/11/18 15:22 CK-MB (CK-2) 1.8 ng/mL (0-4.0) 04/11/18 15:22 CK/CKMB % Calc 1.8 % (<4) 04/11/18 15:22 Troponin I 0.07 ng/mL (0-1.5) 04/11/18 15:22 B-Natriuretic Peptide 1740 pg/mL (0-79) H* 04/11/18 15:35 Total Protein 7.8 g/dL (6.4-8.2) 04/11/18 15:22 Albumin 2.8 g/dL (3.4-5.0) L 04/11/18 15:22 Globulin 5.0 g/dL (2.5-4.5) H 04/11/18 15:22 Albumin/Globulin Ratio 0.6 Ratio (1.1-2.1) L 04/11/18 15:22 Specimen Type Random urine 04/11/18 16:51 Urine Color Yellow (YELLOW) 04/11/18 16:51 Urine Appearance Hazy (CLEAR) 04/11/18 16:51 Urine pH 5.0 (5.0 - 8.0) 04/11/18 16:51 Ur Specific [place] 1.020 (1.000-1.030) 04/11/18 16:51 Urine Protein 2+ (NEGATIVE) 04/11/18 16:51 Urine Glucose (UA) Negative (NEGATIVE) 04/11/18 16:51 Urine Ketones Negative (NEGATIVE) 04/11/18 16:51 Urine Occult Blood 1+ (NEGATIVE) 04/11/18 16:51 Urine Nitrite Negative (NEGATIVE) 04/11/18 16:51 Urine Bilirubin Negative (NEGATIVE) 04/11/18 16:51 Urine Urobilinogen Normal (NORMAL) 04/11/18 16:51 Ur Leukocyte Esterase 1+ (NEGATIVE) 04/11/18 16:51 Urine RBC 3-5 /HPF (NONE SEEN) 04/11/18 16:51 Urine WBC 3-5 /HPF (NONE SEEN) 04/11/18 16:51 Ur Squamous Epith Cells Rare /HPF (NEGATIVE) 04/11/18 16:51 Amorphous Sediment 1+ /HPF (NEGATIVE) 04/11/18 16:51 Urine Bacteria 2+ /HPF (NEGATIVE) 04/11/18 16:51 Ur Culture Indicated? No/not indicated 04/11/18 16:51
[2018-04-11 15:42] LABS: EOSINOPHILS # (AUTO) 0.1 x10^3/uL (0.0-0.2); EOSINOPHILS % (AUTO) 1.8 % (0.9-2.9); HEMATOCRIT 28.6 % (42.0-54.0); HEMOGLOBIN 8.7 g/dL (13.5-18.0); LYMPHOCYTES % (AUTO) 21.1 % (21.0-51.0); MEAN CORPUSCULAR HEMOGLOBIN 27.9 pg (27.0-34.0); MEAN CORPUSCULAR HGB CONC 30.2 g/dL (33.0-35.0); MEAN CORPUSCULAR VOLUME 92.2 fL (80.0-100.0); MEAN PLATELET VOLUME 7.7 fL (7.4-11.0); MONOCYTES # (AUTO) 0.4 x10^3/uL (0.3-0.8); MONOCYTES % (AUTO) 8.5 % (0.0-13.0); NEUTROPHILS # (AUTO) 3.1 x10^3/uL (2.2-4.8); NEUTROPHILS % (AUTO) 67.6 % (42.0-75.0); PLATELET COUNT 207 X10^3/uL (150.0-450.0); RED BLOOD COUNT 3.11 X10^6/uL (4.7-6.0); RED CELL DISTRIBUTION WIDTH 19.2 % (11.6-16.5); WHITE BLOOD COUNT 4.6 X10^3/uL (3.6-10.0)
[2018-04-11] MEDS ORDERED: SALINE 3% 15 ML NEB TX ONE (15:50)
[2018-04-11] MEDS ORDERED: DUONEB 0.5 MG/3 MG ONE (15:50)
--- NOTE | 2018-04-11 15:56 | RAD ---
HISTORY: Shortness of breath Study: Single-view chest Comparison: 10/26/2017. Findings: Left-sided pacemaker is present with intact leads. The trachea is midline. There is cardiomegaly with atherosclerotic calcification and uncoiling of the aortic arch. Pulmonary vascular congestion is present bilaterally with signs of perihilar pulmonary edema. There are bilateral pleural effusions which are small. IV alert edema or infiltrates are present in the lung bases. Osseous structures are intact. IMPRESSION: Cardiomegaly with pulmonary vascular congestion and signs of CHF/pulmonary edema. Alveolar edema or infiltrates are present in the lung bases. There are small bilateral pleural effusions. Reported By:
[2018-04-11 15:58] LABS: LACTIC ACID 1.3 mmol/L (0.4-2.0)
[2018-04-11 16:00] LABS: CALCIUM 8.6 mg/dL (8.5-10.1); CARBON DIOXIDE 22.3 mmol/L (21-32); CREATININE 3.32 mg/dL (0.70-1.30); TROPONIN I 0.07 ng/mL (0-1.5)
[2018-04-11 16:04] LABS: ALBUMIN 2.8 g/dL (3.4-5.0); CKMB % 1.8 % (<4); COR CA(FOR HYPOALB) 9.6 mg/dL (8.5-10.1); CREATINE KINASE MB 1.8 ng/mL (0-4.0); TOTAL PROTEIN 7.8 g/dL (6.4-8.2)
[2018-04-11] MEDS ORDERED: LASIX IVP ONE ×2 (16:15→16:21)
[2018-04-11] MEDS ORDERED: DUONEB 0.5 MG/3 MG NEB ONE (16:29)
[2018-04-11 17:11] LABS: BILIRUBIN,URINE NEGATIVE (NEGATIVE); BLOOD/HEMOGLOBIN,URINE 1+ (NEGATIVE); GLUCOSE, URINE NEGATIVE (NEGATIVE); KETONES,URINE NEGATIVE (NEGATIVE); LEUKOCYTE ESTERASE ,URINE 1+ (NEGATIVE); NITRITES,URINE NEGATIVE (NEGATIVE); PROTEIN,URINE 2+ (NEGATIVE); UROBILINOGEN,URINE NORMAL (NORMAL)
[2018-04-11 17:20] LABS: APPEARANCE,URINE HAZY (CLEAR); COLOR,URINE YELLOW (YELLOW)
[2018-04-11 17:21] LABS: AMORPHOUS SEDIMENT,UR 1+ /HPF (NEGATIVE); BACTERIA,URINE 2+ /HPF (NEGATIVE); SQUAMOUS EPITHELIAL CELL,UR RARE /HPF (NEGATIVE)
[2018-04-11] MEDS ORDERED: ROCEPHIN VIAL 1 GRAM IVP ONE (17:26)
[2018-04-11] MEDS ORDERED: ROCEPHIN VIAL 1 GRAM ONE (17:27)
[2018-04-11] MEDS ORDERED: ZITHROMAX INJ 500 MG VIAL 250 MG in NS 250 ML IV 250 ML IV ONE (17:49)
[2018-04-11] MEDS: DUONEB 0.5 MG/3 MG NEB SCH (20:02)
[2018-04-11] MEDS ORDERED: MICRO K EXTEN CAP 10 MEQ PO SCH (21:00)
[2018-04-11] MEDS: APRESOLINE TAB 25 MG PO SCH (21:53)
[2018-04-11] MEDS: COREG TAB 25 MG PO SCH (21:53)
[2018-04-11] MEDS: ISOSORBIDE DINITRATE PO SCH (21:53)
[2018-04-12] LABS: CKMB % 1.8 % (<4); CREATINE KINASE MB 1.6 ng/mL (0-4.0); TROPONIN I 0.07 ng/mL (0-1.5)
[2018-04-12] MEDS: APRESOLINE TAB 25 MG PO SCH ×3 (06:00→21:03)
[2018-04-12] MEDS: ISOSORBIDE DINITRATE PO SCH ×3 (06:00→21:03)
[2018-04-12 06:02] LABS: BASOPHILS % (AUTO) 0.7 % (0.2-1.0); EOSINOPHILS # (AUTO) 0.2 x10^3/uL (0.0-0.2); EOSINOPHILS % (AUTO) 3.1 % (0.9-2.9); HEMOGLOBIN 8.6 g/dL (13.5-18.0); LYMPHOCYTES # (AUTO) 0.9 X10^3/uL (1.3-2.9); LYMPHOCYTES % (AUTO) 15.7 % (21.0-51.0); MEAN CORPUSCULAR HEMOGLOBIN 28.4 pg (27.0-34.0); MEAN CORPUSCULAR HGB CONC 30.7 g/dL (33.0-35.0); MEAN CORPUSCULAR VOLUME 92.5 fL (80.0-100.0); MEAN PLATELET VOLUME 7.9 fL (7.4-11.0); MONOCYTES # (AUTO) 0.5 x10^3/uL (0.3-0.8); MONOCYTES % (AUTO) 8.5 % (0.0-13.0); NEUTROPHILS # (AUTO) 4.2 x10^3/uL (2.2-4.8); PLATELET COUNT 176 X10^3/uL (150.0-450.0); RED BLOOD COUNT 3.02 X10^6/uL (4.7-6.0); RED CELL DISTRIBUTION WIDTH 19.2 % (11.6-16.5); WHITE BLOOD COUNT 5.8 X10^3/uL (3.6-10.0)
[2018-04-12 06:22] LABS: ALANINE AMINOTRANSFERASE 20 Units/L (12-78); ALBUMIN 2.7 g/dL (3.4-5.0); ALKALINE PHOSPHATASE 124 Units/L (46-116); ASPARTATE AMINO TRANSFERASE 17 Units/L (15-37); BLOOD UREA NITROGEN 44 mg/dL (7-18); CALCIUM 8.8 mg/dL (8.5-10.1); CHLORIDE 114 mmol/L (98-107); COR CA(FOR HYPOALB) 9.8 mg/dL (8.5-10.1); CREATININE 3.12 mg/dL (0.70-1.30); MAGNESIUM 1.9 mg/dL (1.7-2.9); SODIUM 147 mmol/L (136-145); TOTAL PROTEIN 7.5 g/dL (6.4-8.2); eGFR NON BLACK RACES 21 (>60)
[2018-04-12 06:31] LABS: CKMB % 1.8 % (<4); CREATINE KINASE MB 1.4 ng/mL (0-4.0); TROPONIN I 0.07 ng/mL (0-1.5)
[2018-04-12] MEDS ORDERED: LASIX PO SCH (07:00)
[2018-04-12] MEDS ORDERED: NORVASC TAB 2.5 MG ONE (08:13)
[2018-04-12] MEDS: ZYLOPRIM PO SCH (08:40)
[2018-04-12] MEDS: NORVASC TAB 2.5 MG PO SCH (08:40)
[2018-04-12] MEDS: ECOTRIN TAB 325 MG PO SCH (08:40)
[2018-04-12] MEDS: PEPCID TAB 20 MG PO SCH (08:41)
[2018-04-12] MEDS: COREG TAB 25 MG PO SCH ×2 (08:41→20:46)
[2018-04-12] MEDS: DUONEB 0.5 MG/3 MG NEB SCH ×4 (08:58→20:13)
[2018-04-12] MEDS ORDERED: ROCEPHIN VIAL 1 GRAM IVP SCH (09:00)
[2018-04-12] MEDS ORDERED: LASIX IVP SCH (09:00)
[2018-04-12] MEDS ORDERED: PEPCID TAB 20 MG PO SCH (09:00)
[2018-04-12] MEDS ORDERED: ROCEPHIN 1 GRAM IV PREMIX 1 G/50 ML IV.SOLN. IV SCH (09:00)
[2018-04-12] MEDS ORDERED: PROCRIT or EPOGEN SC ONE (10:09)
--- NOTE | 2018-04-12 10:11 | DR.H&P ---
H&P - History & Physical for Day of: H&P Date: 04/11/18 - Chief Complaint Chief Complaint: sob, cough - History of Present Illness History of Present Illness: IS A 77 YEAR OLD PATIENT OF OURS WHO PRESENTED TO THE EMERGENCY ROOM WITH COMPLANTS OF SHORTNESS OF BREATH. PATIENTS FAMILY MEMBER STATED THAT HE HAS HAD COLD, CONGESTION, AND PRODUCTIVE COUGH FOR THE PAST MONTH WITHOUT IMPROVEMENT. ON EXAMINATION, HE IS NOTED WITH SCATTERED WHEEZING. ON ARRIVAL, VITALS WERE 97.0-70-24-88%RA-133/75. HE WAS PLACED ON OXYGEN VIA NASAL CANNULA AT 2L/MIN. OXYGEN SATURATIONS INCREASED TO 94%. LABS WERE OBTAINED. ABNORMAL LAB VALUES INCLUDE THE FOLLOWING: RBC 3.11, HGB 8.7, HCT 28.6, CHLORIDE 112, BUN 44, CREATININE 3.32, GLUCOSE 163, ALK PHOS 125, BNP 1740, ALBUMIN 2.8, GLOBULIN 5.0. CARDIAC ENZYMES WITHIN NORMAL LIMITS. ABG REVEALED PH 7.330, PC02 40.0, P02 67.0, HC03 21.1, 02 SATURATION 91.0, BASE EXCESS -4.5. URINALYSIS REVEALED WBC 3-5, RBC 3-5, LEUKOCYTES 1+, BACTERIA 2+. CHEST XRAY REVEALED: Cardiomegaly with pulmonary vascular congestion and signs of CHF/pulmonary edema. Alveolar edema or infiltrates are present in the lung bases. There are small bilateral pleural effusions. EKG REVEALED: VENTRICULAR PACED RHYTHM WITH HR 70. HE WAS GIVEN LASIX 40MG IV X 1, DUONEB X 1, ROCEPHIN 1GM IV X 1, AND ZITHROMAX 250MG IV X 1 DOSE IN THE ER WITHOUT IMPROVEMENT. HE WAS ADMITTED FOR FURTHER EVAULATION AND TREATMENT OF CHF, SOB, PNEUMONIA, AND RENAL INSUFFICIENCY. HE WILL BE STARTED ON THE PNEUMONIA PROTOCOL ON IV AZITHROMYCIN AND ROCEPHIN WELL RESPIRATORY TREATMENTS AND SUPPLEMENTAL OXYGEN. WE PLAN TO FOLLOW UP WITH AM LABS AND CONTINUE TO MONITOR. - Past Medical History Past Medical History: Coronary Artery Disease, Hypertension, Dyslipidemia, Renal Disease, Alzheimers, COPD, GERD, Arthritis, Gout, CHF Additional Medical History: Cardiac Arrhythmia, Thoracic Aneurysm, Vision deficit, Back Pain, Previous Blood Transfusion - Past Surgical History Surgical History: Angioplasty/Stents Additional Surgical History: Pacemaker - Family History Family Medical History: Diabetes Mellitus, [place], Coronary Artery Disease - Social History Does patient currently use any type of tobacco product: No Have you used tobacco products in the last 12 months: No Type of Tobacco Use: None Does any household member use tobacco: No Alcohol Use: None Drug Use: Prescription Drugs - Medications Home Medications: No Known Drug Allergies Allergy (Verified 04/11/18 14:39) CONTINUE taking the following medications aspirin 325 mg PO DAILY 04/11/18 [History] potassium chloride 10 meq PO BID 04/11/18 [History] - Review of Systems Constitutional: Fever, Weakness Eyes: No Symptoms Reported ENT: No Symptoms Reported Respiratory: See HPI, Cough, Shortness of Breath, SOB with Excertion, Sputum, Wheezing Cardiovascular: Edema (LOWER EXTREMITIES ) Gastrointestinal: No Symptoms Reported Genitourinary: No Symptoms Reported Musculoskeletal: No Symptoms Reported Skin: No Symptoms Reported Neurological: Weakness - Physical Exam Vital Signs: Temperature 99.0 F Pulse Rate [Right Brachial] 70 Pulse Rate 70 Respiratory Rate 18 Blood Pressure [Left Arm] 137/86 Blood Pressure [Right Arm] 113/65 Blood Pressure [Standing] 120/73 Blood Pressure [Sitting] 123/81 Blood Pressure [Lying] 124/81 Blood Pressure 133/75 O2 Sat by Pulse Oximetry 93 Oriented: Normal Eyes: Normal Ear: Normal Nose: Normal Throat: Normal Respiratory: Wheezes Throughout Cardiovascular: Edema (LOWER EXTREMITY 2+ PITTING EDEMA ) : Normal Auscultation: Bowel Sounds: Normal Palpation: Normal Tenderness: Normal Skin: Normal Musculoskeletal: Normal Psychiatric: Normal Mood Description: Calm Affect: Normal Speech Pattern: Clear - Assessment/Plan (1) CHF (congestive heart failure) Qualifiers: Heart failure type: unspecified Heart failure chronicity: acute on chronic Qualified Code(s): I50.9 - Heart failure, unspecified Status: Chronic Plan: LASIX 40MG IV BID, CONTINUE TO MONITOR (2) Pneumonia Qualifiers: Pneumonia type: due to unspecified organism Laterality: unspecified laterality Lung location: lower lobe of lung Qualified Code(s): J18.1 - Lobar pneumonia, unspecified organism Status: Acute Plan: IV FORTAZ, IV LEVAQUIN, RESPIRATORY TX, SUPPLEMENTAL OXYGEN, CONTINUE TO MONITOR (3) Shortness of breath Status: Acute (4) CKD (chronic kidney disease) Qualifiers: Chronic kidney disease stage: unspecified stage Qualified Code(s): N18.9 - Chronic kidney disease, unspecified Status: Chronic - Allergies Allergies/Adverse Reactions: Allergies Allergy/AdvReac Type Severity Reaction Status Date / Time No Known Drug Allergies Allergy Verified 04/11/18 14:39
[2018-04-12] MEDS ORDERED: PHARMACY CONSULT - DOSE _____ XX SCH (11:00)
[2018-04-12] MEDS: FORTAZ or TAZICEF VIAL INJ IVP SCH (11:53)
[2018-04-12] MEDS ORDERED: NS 500 ML IV 500 ML IV ONE (12:02)
[2018-04-12] MEDS: LEVAQUIN PREMIX IV 250 MG 250 MG/50 ML BAG IV SCH (12:05)
[2018-04-12] MEDS ORDERED: LASIX IVP ONE ×3 (12:52→13:07)
[2018-04-12] MEDS ORDERED: MORPHINE SULFATE INJ 2 MG INJ IVP PRN (13:01)
[2018-04-12] MEDS: LASIX IVP SCH ×2 (13:34→20:46)
[2018-04-12] MEDS ORDERED: ZITHROMAX INJ 500 MG VIAL 500 MG in NS 250 ML IV 250 ML IV SCH (21:00)
[2018-04-13] MEDS: APRESOLINE TAB 25 MG PO SCH ×3 (06:14→21:01)
[2018-04-13] MEDS: ISOSORBIDE DINITRATE PO SCH ×3 (06:14→21:01)
[2018-04-13 06:26] LABS: BASOPHILS % (AUTO) 0.6 % (0.2-1.0); EOSINOPHILS # (AUTO) 0.1 x10^3/uL (0.0-0.2); EOSINOPHILS % (AUTO) 2.4 % (0.9-2.9); HEMATOCRIT 24.9 % (42.0-54.0); HEMOGLOBIN 7.7 g/dL (13.5-18.0); LYMPHOCYTES # (AUTO) 1.4 X10^3/uL (1.3-2.9); LYMPHOCYTES % (AUTO) 22.6 % (21.0-51.0); MEAN CORPUSCULAR HEMOGLOBIN 28.3 pg (27.0-34.0); MEAN CORPUSCULAR HGB CONC 31.1 g/dL (33.0-35.0); MEAN CORPUSCULAR VOLUME 91.3 fL (80.0-100.0); MEAN PLATELET VOLUME 8.3 fL (7.4-11.0); MONOCYTES # (AUTO) 0.6 x10^3/uL (0.3-0.8); MONOCYTES % (AUTO) 10.2 % (0.0-13.0); NEUTROPHILS # (AUTO) 3.9 x10^3/uL (2.2-4.8); NEUTROPHILS % (AUTO) 64.2 % (42.0-75.0); PLATELET COUNT 155 X10^3/uL (150.0-450.0); RED BLOOD COUNT 2.73 X10^6/uL (4.7-6.0); RED CELL DISTRIBUTION WIDTH 19.5 % (11.6-16.5)
[2018-04-13 06:33] LABS: ALANINE AMINOTRANSFERASE 13 Units/L (12-78); ALBUMIN 2.3 g/dL (3.4-5.0); ALKALINE PHOSPHATASE 109 Units/L (46-116); ASPARTATE AMINO TRANSFERASE 12 Units/L (15-37); BLOOD UREA NITROGEN 44 mg/dL (7-18); CALCIUM 8.5 mg/dL (8.5-10.1); CARBON DIOXIDE 23.7 mmol/L (21-32); CHLORIDE 112 mmol/L (98-107); COR CA(FOR HYPOALB) 9.9 mg/dL (8.5-10.1); CREATININE 3.32 mg/dL (0.70-1.30); SODIUM 145 mmol/L (136-145); TOTAL PROTEIN 6.8 g/dL (6.4-8.2); eGFR NON BLACK RACES 19 (>60)
[2018-04-13 07:40] LABS: PLATELET MORPHOLOGY COMMENT NORMAL (NORMAL)
[2018-04-13] MEDS ORDERED: PROCRIT or EPOGEN SC ONE (08:33)
[2018-04-13] MEDS ORDERED: NORVASC TAB 2.5 MG ONE (08:35)
--- NOTE | 2018-04-13 08:49 | PCM.PROG ---
Progress Note - Progress Note for Day of Date of Exam: 04/12/18 - Subjective Subjective: WAS ADMITTED FOR CHF, SOB, PNEUMONIA, AND RENAL INSUFFICIENCY. TODAY, HE IS ALERT AND ORIENTED, LYING IN BED ON MORNING ROUNDS. HE CONTINUES WITH SHORTNESS OF BREATH AND A PRODUCTIVE COUGH. ON EXAMINATION, HEART IS REGULAR IN RATE AND RHYTHM. BILATERAL LUNGS ARE NOTED WITH SCATTERED WHEEZING. ABDOMEN IS ROUND, SOFT, AND NON-TENDER WITH NORMAL BOWEL SOUNDS NOTED IN ALL QUADRANTS. HIS VITLAS THIS MORNING ARE 97.8-70-22-92%NC-156/88. LABS WERE OBTAINED. ABNORMAL LAB VALUES INCLUDE THE FOLLOWING: RBC 3.02, HGB 8.6, HCT 28.0, SODIUM 147, POTASSIUM 5.3, CHLORIDE 114, BUN 44, CREATININE 3.12, GLUCOSE 107, ALK PHOS 124, ALBUMIN 2.7, GLOBULIN 4.8. HE IS CURRENTLY RECEIVING IV AZITHROMYCIN AND ROCEPHIN. WE WILL DISCONTINUE THIS TODAY AND START IV FORTAZ AND LEVAQUIN. WE WILL ALSO GIVE A TEST DOSE OF PROCRIT 5,000UNITS SC X 1 DOSE. OTHERWISE, WE WILL CONTINUE WITH RESPIRATORY TX, SUPPLEMENTAL OXYGEN, AND CURRENT PLAN OF CARE. WE WILL FOLLOW UP WITH AM LABS AND CONTINUE TO MONITOR. - Past Medical Family Social History Past Med/Fam/Surg Hx: No changes since H&P Allergies: Allergies No Known Drug Allergies Allergy (Verified 04/11/18 14:39) - Review of Systems ROS: No change since H&P - Vital Signs and I&O's Vital Signs: Temperature 99.2 F Pulse Rate [Right Brachial] 71 Pulse Rate 69 Respiratory Rate 18 Blood Pressure [Left Arm] 131/78 Blood Pressure [Right Arm] 113/65 Blood Pressure [Standing] 120/73 Blood Pressure [Sitting] 123/81 Blood Pressure [Lying] 124/81 Blood Pressure 133/75 O2 Sat by Pulse Oximetry 91 Intake and Output: Intake & Output 04/10/18 04/11/18 04/12/18 04/13/18 11:59 11:59 11:59 11:59 Intake Total 350 / 350 1320 / 1320 Output Total 750 / 750 6250 / 6250 Balance -400 / -400 -4930 / -4930 - Physical Exam Oriented: Normal Eyes: Normal Ear: Normal Nose: Normal Throat: Normal Respiratory: Generalized, Wheezes Cardiovascular: Edema (LOWER EXTREMITY 2+ PITTING EDEMA ) : Normal Auscultation: Bowel Sounds: Normal Palpation: Normal Tenderness: Normal Skin: Normal Musculoskeletal: Normal Psychiatric: Normal Mood Description: Calm Affect: Normal Speech Pattern: Clear - Laboratory and Diagnostics Result Diagrams: 04/13/18 05:23 04/13/18 05:23 Labs: 04/11/18 15:30 Blood Blood Culture - Preliminary 04/11/18 15:22 Blood Blood Culture - Preliminary 04/11/18 15:57 Sputum - Expectorated Sputum Sputum Culture - Preliminary 04/11/18 15:57 Sputum - Expectorated Sputum - Final Laboratory WBC 6.0 X10^3/uL (3.6-10.0) 04/13/18 05:23 RBC 2.73 X10^6/uL (4.7-6.0) L 04/13/18 05:23 Hgb 7.7 g/dL (13.5-18.0) L 04/13/18 05:23 Hct 24.9 % (42.0-54.0) L 04/13/18 05:23 MCV 91.3 fL (80.0-100.0) 04/13/18 05:23 MCH 28.3 pg (27.0-34.0) 04/13/18 05:23 MCHC 31.1 g/dL (33.0-35.0) L 04/13/18 05:23 RDW 19.5 % (11.6-16.5) H 04/13/18 05:23 Plt Count 155 X10^3/uL (150.0-450.0) 04/13/18 05:23 Plt Count Comment Adequate (ADEQUATE) 04/13/18 05:23 MPV 8.3 fL (7.4-11.0) 04/13/18 05:23 Neut % (Auto) 64.2 % (42.0-75.0) 04/13/18 05:23 Lymph % (Auto) 22.6 % (21.0-51.0) 04/13/18 05:23 [place] % (Auto) 10.2 % (0.0-13.0) 04/13/18 05:23 Eos % (Auto) 2.4 % (0.9-2.9) 04/13/18 05:23 Baso % (Auto) 0.6 % (0.2-1.0) 04/13/18 05:23 Neut # (Auto) 3.9 x10^3/uL (2.2-4.8) 04/13/18 05:23 Lymph # (Auto) 1.4 X10^3/uL (1.3-2.9) 04/13/18 05:23 [place] # (Auto) 0.6 x10^3/uL (0.3-0.8) 04/13/18 05:23 Eos # (Auto) 0.1 x10^3/uL (0.0-0.2) 04/13/18 05:23 Baso # (Auto) 0.0 X10^3/uL (0.0-0.1) 04/13/18 05:23 Absolute Nucleated RBC 0.0 /100WBC 04/13/18 05:23 Plt Morphology Comment Normal (NORMAL) 04/13/18 05:23 RBC Morphology Normal (NORMAL) 04/13/18 05:23 Sample Site Rrad 04/11/18 15:03 ABG pH 7.330 (7.35-7.45) L 04/11/18 15:03 ABG pCO2 40.0 mmHg (35.0-45.0) 04/11/18 15:03 ABG pO2 67.0 mmHg (80.0-100.0) L 04/11/18 15:03 ABG HCO3 21.1 mmol/L (22-26) L 04/11/18 15:03 ABG O2 Saturation 91.0 % (90-100) 04/11/18 15:03 ABG Base Excess -4.5 mmol/L (-2.0-2.0) L 04/11/18 15:03 Artemio Test Pos 04/11/18 15:03 A-a Gradient 83.0 mmHg 04/11/18 15:03 FiO2 28.0 04/11/18 15:03 Blood Gas Comments Pt dora well elj 04/11/18 15:03 Sodium 145 mmol/L (136-145) 04/13/18 05:23 Corrected Sodium TNP 04/13/18 05:23 Potassium 4.9 mmol/L (3.5-5.1) 04/13/18 05:23 Chloride 112 mmol/L (98-107) H 04/13/18 05:23 Carbon Dioxide 23.7 mmol/L (21-32) 04/13/18 05:23 BUN 44 mg/dL (7-18) H 04/13/18 05:23 Creatinine 3.32 mg/dL (0.70-1.30) H 04/13/18 05:23 Est GFR (MDRD) Af Amer 23 (>60) L 04/13/18 05:23 Est GFR (MDRD) Non-Af 19 (>60) L 04/13/18 05:23 Glucose 90 mg/dL (65-99) 04/13/18 05:23 Lactic Acid 1.3 mmol/L (0.4-2.0) 04/11/18 15:22 Calcium 8.5 mg/dL (8.5-10.1) 04/13/18 05:23 Corrected Calcium 9.9 mg/dL (8.5-10.1) 04/13/18 05:23 Magnesium 1.9 mg/dL (1.7-2.9) 04/12/18 05:30 Total Bilirubin 0.90 mg/dL (0.2-1.0) 04/13/18 05:23 AST 12 Units/L (15-37) L 04/13/18 05:23 ALT 13 Units/L (12-78) 04/13/18 05:23 Alkaline Phosphatase 109 Units/L (46-116) 04/13/18 05:23 Creatine Kinase 79 Units/L (39-308) 04/12/18 05:30 CK-MB (CK-2) 1.4 ng/mL (0-4.0) 04/12/18 05:30 CK/CKMB % Calc 1.8 % (<4) 04/12/18 05:30 Troponin I 0.07 ng/mL (0-1.5) 04/12/18 05:30 B-Natriuretic Peptide 1440 pg/mL (0-79) H* 04/12/18 05:30 Total Protein 6.8 g/dL (6.4-8.2) 04/13/18 05:23 Albumin 2.3 g/dL (3.4-5.0) L 04/13/18 05:23 Globulin 4.5 g/dL (2.5-4.5) 04/13/18 05:23 Albumin/Globulin Ratio 0.5 Ratio (1.1-2.1) L 04/13/18 05:23 Specimen Type Random urine 04/11/18 16:51 Urine Color Yellow (YELLOW) 04/11/18 16:51 Urine Appearance Hazy (CLEAR) 04/11/18 16:51 Urine pH 5.0 (5.0 - 8.0) 04/11/18 16:51 Ur Specific [place] 1.020 (1.000-1.030) 04/11/18 16:51 Urine Protein 2+ (NEGATIVE) 04/11/18 16:51 Urine Glucose (UA) Negative (NEGATIVE) 04/11/18 16:51 Urine Ketones Negative (NEGATIVE) 04/11/18 16:51 Urine Occult Blood 1+ (NEGATIVE) 04/11/18 16:51 Urine Nitrite Negative (NEGATIVE) 04/11/18 16:51 Urine Bilirubin Negative (NEGATIVE) 04/11/18 16:51 Urine Urobilinogen Normal (NORMAL) 04/11/18 16:51 Ur Leukocyte Esterase 1+ (NEGATIVE) 04/11/18 16:51 Urine RBC 3-5 /HPF (NONE SEEN) 04/11/18 16:51 Urine WBC 3-5 /HPF (NONE SEEN) 04/11/18 16:51 Ur Squamous Epith Cells Rare /HPF (NEGATIVE) 04/11/18 16:51 Amorphous Sediment 1+ /HPF (NEGATIVE) 04/11/18 16:51 Urine Bacteria 2+ /HPF (NEGATIVE) 04/11/18 16:51 Ur Culture Indicated? No/not indicated 04/11/18 16:51 - Plan (1) CHF (congestive heart failure) Status: Chronic Qualifiers: Heart failure type: unspecified Heart failure chronicity: acute on chronic Qualified Code(s): I50.9 - Heart failure, unspecified Plan: LASIX 40MG IV BID, CONTINUE TO MONITOR (2) Pneumonia Status: Acute Qualifiers: Pneumonia type: due to unspecified organism Laterality: unspecified laterality Lung location: lower lobe of lung Qualified Code(s): J18.1 - Lobar pneumonia, unspecified organism Plan: IV FORTAZ, IV LEVAQUIN, RESPIRATORY [place], SUPPLEMENTAL OXYGEN, CONTINUE TO MONITOR (3) Shortness of breath Status: Acute (4) CKD (chronic kidney disease) Status: Chronic Qualifiers: Chronic kidney disease stage: unspecified stage Qualified Code(s): N18.9 - Chronic kidney disease, unspecified
[2018-04-13] MEDS: FORTAZ or TAZICEF VIAL INJ IVP SCH (09:11)
[2018-04-13] MEDS: NORVASC TAB 2.5 MG PO SCH (09:12)
[2018-04-13] MEDS: PEPCID TAB 20 MG PO SCH (09:12)
[2018-04-13] MEDS: ZYLOPRIM PO SCH (09:12)
[2018-04-13] MEDS: COREG TAB 25 MG PO SCH ×2 (09:12→21:01)
[2018-04-13] MEDS: ECOTRIN TAB 325 MG PO SCH (09:12)
[2018-04-13] MEDS: LEVAQUIN PREMIX IV 250 MG 250 MG/50 ML BAG IV SCH (09:13)
[2018-04-13] MEDS: DUONEB 0.5 MG/3 MG NEB SCH ×4 (09:13→20:02)
--- NOTE | 2018-04-13 09:53 | RAD ---
HISTORY: Shortness of breath. Prior medical history Coronary artery disease. CHF, COPD. Hypertension. Prior surgical history of pacemaker in stents. Study: Single-view chest Comparison: 04/11/2018. Findings: Trachea is midline. There is cardiomegaly with pulmonary vascular congestion and signs bilateral perihilar pulmonary edema. Left-sided pacemaker is again seen with intact leads. Some improvement is noted in aeration in the right lung base, well there is increasing density present involving the left lung, predominantly peripherally. This may indicate increasing pleural effusion on the left. Osseous structures are intact. IMPRESSION: Cardiomegaly with changing pattern of bilateral pulmonary edema. Overall, the process has not improved significantly. Reported By:
[2018-04-14] MEDS: ISOSORBIDE DINITRATE PO SCH ×3 (05:15→21:34)
[2018-04-14] MEDS: APRESOLINE TAB 25 MG PO SCH ×3 (05:15→21:34)
[2018-04-14 06:44] LABS: BASOPHILS % (AUTO) 0.6 % (0.2-1.0); EOSINOPHILS # (AUTO) 0.2 x10^3/uL (0.0-0.2); EOSINOPHILS % (AUTO) 3.7 % (0.9-2.9); HEMATOCRIT 25.7 % (42.0-54.0); HEMOGLOBIN 7.9 g/dL (13.5-18.0); LYMPHOCYTES # (AUTO) 1.4 X10^3/uL (1.3-2.9); LYMPHOCYTES % (AUTO) 25.4 % (21.0-51.0); MEAN CORPUSCULAR HEMOGLOBIN 28.3 pg (27.0-34.0); MEAN CORPUSCULAR HGB CONC 30.6 g/dL (33.0-35.0); MEAN CORPUSCULAR VOLUME 92.4 fL (80.0-100.0); MEAN PLATELET VOLUME 8.1 fL (7.4-11.0); MONOCYTES # (AUTO) 0.5 x10^3/uL (0.3-0.8); MONOCYTES % (AUTO) 9.2 % (0.0-13.0); NEUTROPHILS # (AUTO) 3.3 x10^3/uL (2.2-4.8); NEUTROPHILS % (AUTO) 61.1 % (42.0-75.0); PLATELET COUNT 144 X10^3/uL (150.0-450.0); RED BLOOD COUNT 2.78 X10^6/uL (4.7-6.0); RED CELL DISTRIBUTION WIDTH 19.2 % (11.6-16.5); WHITE BLOOD COUNT 5.4 X10^3/uL (3.6-10.0)
[2018-04-14 06:48] LABS: ALANINE AMINOTRANSFERASE 14 Units/L (12-78); ALBUMIN 2.3 g/dL (3.4-5.0); ALKALINE PHOSPHATASE 105 Units/L (46-116); ASPARTATE AMINO TRANSFERASE 12 Units/L (15-37); BLOOD UREA NITROGEN 42 mg/dL (7-18); CALCIUM 8.3 mg/dL (8.5-10.1); CARBON DIOXIDE 24.2 mmol/L (21-32); CHLORIDE 111 mmol/L (98-107); COR CA(FOR HYPOALB) 9.7 mg/dL (8.5-10.1); CREATININE 3.36 mg/dL (0.70-1.30); SODIUM 145 mmol/L (136-145); TOTAL PROTEIN 6.6 g/dL (6.4-8.2); eGFR NON BLACK RACES 19 (>60)
--- NOTE | 2018-04-14 06:54 | RAD ---
HISTORY: Shortness of breath Study: Chest AP portable Comparison: 04/13/2018 Findings: There is a pacemaker present on the left obscuring a portion of the left upper lobe. The heart remains enlarged. Mild pulmonary venous congestion is present. Mild perihilar interstitial edema is slightly improved. The aorta is calcified. No infiltrates or pleural effusions are identified. IMPRESSION: Cardiomegaly with improving mild congestive heart failure Reported By:
[2018-04-14 07:31] LABS: ANISOCYTOSIS SLIGHT; HYPOCHROMASIA SLIGHT; PLATELET MORPHOLOGY COMMENT NORMAL (NORMAL)
--- NOTE | 2018-04-14 08:29 | PCM.PROG ---
Progress Note - Progress Note for Day of Date of Exam: 04/13/18 - Subjective Subjective: WAS ADMITTED FOR CHF, SOB, PNEUMONIA, AND RENAL INSUFFICIENCY. TODAY, HE IS ALERT AND ORIENTED, LYING IN BED ON MORNING ROUNDS. HE CONTINUES WITH SHORTNESS OF BREATH AND A PRODUCTIVE COUGH, BUT REPORTS IMPROVEMENT SINCE YESTERDAY. ON EXAMINATION, HEART IS REGULAR IN RATE AND RHYTHM . BILATERAL LUNGS ARE NOTED WITH SCATTERED WHEEZING. ABDOMEN IS ROUND, SOFT, AND NON-TENDER WITH NORMAL BOWEL SOUNDS NOTED IN ALL QUADRANTS. HIS VITLAS THIS MORNING ARE 98.5-69-20-95%NC-141/78. LABS WERE OBTAINED. ABNORMAL LAB VALUES INCLUDE THE FOLLOWING: RBC 2.73, HGB 7.7, HCT 24.9, CHLORIDE 112, BUN 44, CREATININE 3.32, AST 12, ALBUMIN 2.3. A CHEST XRAY WAS OBTAINED TODAY AND REVEALED: Cardiomegaly with changing pattern of bilateral pulmonary edema. Overall, the process has not improved significantly. HE IS CURRENTLY RECEIVING IV FORTAZ AND LEVAQUIN WELL RESPIRATORY TREATMENTS AND SUPPLEMENTAL OXYGEN. WE WILL ADMINISTER PROCRIT 10,000 UNITS SC X 1 DOSE TODAY. OTHERWISE, WE WILL CONTINUE WITH CURRENT PLAN OF CARE. WE WILL FOLLOW UP WITH AM LABS AND CONTINUE TO MONITOR. - Past Medical Family Social History Past Med/Fam/Surg Hx: No changes since H&P Allergies: Allergies No Known Drug Allergies Allergy (Verified 04/11/18 14:39) - Review of Systems ROS: No change since H&P - Vital Signs and I&O's Vital Signs: Temperature 98.2 F Pulse Rate [Left Brachial] 70 Pulse Rate [Right Brachial] 90 Pulse Rate 68 Respiratory Rate 20 Blood Pressure [Left Arm] 133/76 Blood Pressure [Right Arm] 113/65 Blood Pressure [Standing] 120/73 Blood Pressure [Sitting] 123/81 Blood Pressure [Lying] 124/81 Blood Pressure 133/75 O2 Sat by Pulse Oximetry 95 Intake and Output: Intake & Output 04/11/18 04/12/18 04/13/18 04/14/18 11:59 11:59 11:59 11:59 Intake Total 350 / 350 1320 / 1320 1460 / 1460 Output Total 750 / 750 6250 / 6250 1000 / 1000 Balance -400 / -400 -4930 / -4930 460 / 460 - Physical Exam Oriented: Normal Eyes: Normal Ear: Normal Nose: Normal Throat: Normal Respiratory: Generalized, Wheezes Cardiovascular: Edema (LOWER EXTREMITY 2+ PITTING EDEMA ) : Normal Auscultation: Bowel Sounds: Normal Palpation: Normal Tenderness: Normal Skin: Normal Musculoskeletal: Normal Psychiatric: Normal Mood Description: Calm Affect: Normal Speech Pattern: Clear, Appropriate - Laboratory and Diagnostics Result Diagrams: 04/14/18 05:22 04/14/18 05:22 Labs: 04/11/18 15:57 Sputum - Expectorated Sputum Sputum Culture - Final 04/11/18 15:57 Sputum - Expectorated Sputum - Final 04/11/18 15:30 Blood Blood Culture - Preliminary 04/11/18 15:22 Blood Blood Culture - Preliminary Laboratory WBC 5.4 X10^3/uL (3.6-10.0) 04/14/18 05:22 RBC 2.78 X10^6/uL (4.7-6.0) L 04/14/18 05:22 Hgb 7.9 g/dL (13.5-18.0) L 04/14/18 05:22 Hct 25.7 % (42.0-54.0) L 04/14/18 05:22 MCV 92.4 fL (80.0-100.0) 04/14/18 05:22 MCH 28.3 pg (27.0-34.0) 04/14/18 05:22 MCHC 30.6 g/dL (33.0-35.0) L 04/14/18 05:22 RDW 19.2 % (11.6-16.5) H 04/14/18 05:22 Plt Count 144 X10^3/uL (150.0-450.0) L 04/14/18 05:22 Plt Count Comment Adequate (ADEQUATE) 04/14/18 05:22 MPV 8.1 fL (7.4-11.0) 04/14/18 05:22 Neut % (Auto) 61.1 % (42.0-75.0) 04/14/18 05:22 Lymph % (Auto) 25.4 % (21.0-51.0) 04/14/18 05:22 [place] % (Auto) 9.2 % (0.0-13.0) 04/14/18 05:22 Eos % (Auto) 3.7 % (0.9-2.9) H 04/14/18 05:22 Baso % (Auto) 0.6 % (0.2-1.0) 04/14/18 05:22 Neut # (Auto) 3.3 x10^3/uL (2.2-4.8) 04/14/18 05:22 Lymph # (Auto) 1.4 X10^3/uL (1.3-2.9) 04/14/18 05:22 [place] # (Auto) 0.5 x10^3/uL (0.3-0.8) 04/14/18 05:22 Eos # (Auto) 0.2 x10^3/uL (0.0-0.2) 04/14/18 05:22 Baso # (Auto) 0.0 X10^3/uL (0.0-0.1) 04/14/18 05:22 Absolute Nucleated RBC 0.1 /100WBC 04/14/18 05:22 Plt Morphology Comment Normal (NORMAL) 04/14/18 05:22 RBC Morphology Abnormal (NORMAL) 04/14/18 05:22 Hypochromasia Slight A 04/14/18 05:22 Anisocytosis Slight A 04/14/18 05:22 Sample Site Rrad 04/11/18 15:03 ABG pH 7.330 (7.35-7.45) L 04/11/18 15:03 ABG pCO2 40.0 mmHg (35.0-45.0) 04/11/18 15:03 ABG pO2 67.0 mmHg (80.0-100.0) L 04/11/18 15:03 ABG HCO3 21.1 mmol/L (22-26) L 04/11/18 15:03 ABG O2 Saturation 91.0 % (90-100) 04/11/18 15:03 ABG Base Excess -4.5 mmol/L (-2.0-2.0) L 04/11/18 15:03 Artemio Test Pos 04/11/18 15:03 A-a Gradient 83.0 mmHg 04/11/18 15:03 FiO2 28.0 04/11/18 15:03 Blood Gas Comments Pt dora well elj 04/11/18 15:03 Sodium 145 mmol/L (136-145) 04/14/18 05:22 Corrected Sodium TNP 04/14/18 05:22 Potassium 4.6 mmol/L (3.5-5.1) 04/14/18 05:22 Chloride 111 mmol/L (98-107) H 04/14/18 05:22 Carbon Dioxide 24.2 mmol/L (21-32) 04/14/18 05:22 BUN 42 mg/dL (7-18) H 04/14/18 05:22 Creatinine 3.36 mg/dL (0.70-1.30) H 04/14/18 05:22 Est GFR (MDRD) Af Amer 23 (>60) L 04/14/18 05:22 Est GFR (MDRD) Non-Af 19 (>60) L 04/14/18 05:22 Glucose 96 mg/dL (65-99) 04/14/18 05:22 Lactic Acid 1.3 mmol/L (0.4-2.0) 04/11/18 15:22 Calcium 8.3 mg/dL (8.5-10.1) L 04/14/18 05:22 Corrected Calcium 9.7 mg/dL (8.5-10.1) 04/14/18 05:22 Magnesium 1.9 mg/dL (1.7-2.9) 04/12/18 05:30 Total Bilirubin 0.60 mg/dL (0.2-1.0) 04/14/18 05:22 AST 12 Units/L (15-37) L 04/14/18 05:22 ALT 14 Units/L (12-78) 04/14/18 05:22 Alkaline Phosphatase 105 Units/L (46-116) 04/14/18 05:22 Creatine Kinase 79 Units/L (39-308) 04/12/18 05:30 CK-MB (CK-2) 1.4 ng/mL (0-4.0) 04/12/18 05:30 CK/CKMB % Calc 1.8 % (<4) 04/12/18 05:30 Troponin I 0.07 ng/mL (0-1.5) 04/12/18 05:30 B-Natriuretic Peptide 1440 pg/mL (0-79) H* 04/12/18 05:30 Total Protein 6.6 g/dL (6.4-8.2) 04/14/18 05:22 Albumin 2.3 g/dL (3.4-5.0) L 04/14/18 05:22 Globulin 4.3 g/dL (2.5-4.5) 04/14/18 05:22 Albumin/Globulin Ratio 0.5 Ratio (1.1-2.1) L 04/14/18 05:22 Specimen Type Random urine 04/11/18 16:51 Urine Color Yellow (YELLOW) 04/11/18 16:51 Urine Appearance Hazy (CLEAR) 04/11/18 16:51 Urine pH 5.0 (5.0 - 8.0) 04/11/18 16:51 Ur Specific [place] 1.020 (1.000-1.030) 04/11/18 16:51 Urine Protein 2+ (NEGATIVE) 04/11/18 16:51 Urine Glucose (UA) Negative (NEGATIVE) 04/11/18 16:51 Urine Ketones Negative (NEGATIVE) 04/11/18 16:51 Urine Occult Blood 1+ (NEGATIVE) 04/11/18 16:51 Urine Nitrite Negative (NEGATIVE) 04/11/18 16:51 Urine Bilirubin Negative (NEGATIVE) 04/11/18 16:51 Urine Urobilinogen Normal (NORMAL) 04/11/18 16:51 Ur Leukocyte Esterase 1+ (NEGATIVE) 04/11/18 16:51 Urine RBC 3-5 /HPF (NONE SEEN) 04/11/18 16:51 Urine WBC 3-5 /HPF (NONE SEEN) 04/11/18 16:51 Ur Squamous Epith Cells Rare /HPF (NEGATIVE) 04/11/18 16:51 Amorphous Sediment 1+ /HPF (NEGATIVE) 04/11/18 16:51 Urine Bacteria 2+ /HPF (NEGATIVE) 04/11/18 16:51 Ur Culture Indicated? No/not indicated 04/11/18 16:51 - Plan (1) CHF (congestive heart failure) Status: Chronic Qualifiers: Heart failure type: unspecified Heart failure chronicity: acute on chronic Qualified Code(s): I50.9 - Heart failure, unspecified Plan: LASIX 40MG IV BID, CONTINUE TO MONITOR (2) Pneumonia Status: Acute Qualifiers: Pneumonia type: due to unspecified organism Laterality: unspecified laterality Lung location: lower lobe of lung Qualified Code(s): J18.1 - Lobar pneumonia, unspecified organism Plan: IV FORTAZ, IV LEVAQUIN, RESPIRATORY TX, SUPPLEMENTAL OXYGEN, CONTINUE TO MONITOR (3) Shortness of breath Status: Acute (4) CKD (chronic kidney disease) Status: Chronic Qualifiers: Chronic kidney disease stage: unspecified stage Qualified Code(s): N18.9 - Chronic kidney disease, unspecified (5) Anemia Status: Acute Qualifiers: Anemia type: iron deficiency Plan: PROCRIT 10,000 UNITS SC X 1 DOSE, CONTINUE TO MONITOR
[2018-04-14] MEDS ORDERED: NORVASC TAB 2.5 MG ONE (08:44)
[2018-04-14] MEDS: FORTAZ or TAZICEF VIAL INJ IVP SCH (09:07)
[2018-04-14] MEDS: LEVAQUIN PREMIX IV 250 MG 250 MG/50 ML BAG IV SCH (09:07)
[2018-04-14] MEDS: PEPCID TAB 20 MG PO SCH (09:09)
[2018-04-14] MEDS: ECOTRIN TAB 325 MG PO SCH (09:09)
[2018-04-14] MEDS: COREG TAB 25 MG PO SCH ×2 (09:09→20:20)
[2018-04-14] MEDS: ZYLOPRIM PO SCH (09:09)
[2018-04-14] MEDS: NORVASC TAB 2.5 MG PO SCH (09:09)
[2018-04-14] MEDS: DUONEB 0.5 MG/3 MG NEB SCH ×4 (09:10→21:14)
[2018-04-15] MEDS: APRESOLINE TAB 25 MG PO SCH (05:40)
[2018-04-15] MEDS: ISOSORBIDE DINITRATE PO SCH (05:40)
[2018-04-15 06:17] LABS: BASOPHILS % (AUTO) 0.5 % (0.2-1.0); EOSINOPHILS # (AUTO) 0.2 x10^3/uL (0.0-0.2); EOSINOPHILS % (AUTO) 4.1 % (0.9-2.9); HEMATOCRIT 25.4 % (42.0-54.0); HEMOGLOBIN 7.7 g/dL (13.5-18.0); LYMPHOCYTES # (AUTO) 1.1 X10^3/uL (1.3-2.9); LYMPHOCYTES % (AUTO) 21.7 % (21.0-51.0); MEAN CORPUSCULAR HEMOGLOBIN 28.2 pg (27.0-34.0); MEAN CORPUSCULAR HGB CONC 30.4 g/dL (33.0-35.0); MEAN CORPUSCULAR VOLUME 92.5 fL (80.0-100.0); MEAN PLATELET VOLUME 8.3 fL (7.4-11.0); MONOCYTES # (AUTO) 0.6 x10^3/uL (0.3-0.8); NEUTROPHILS # (AUTO) 3.3 x10^3/uL (2.2-4.8); NEUTROPHILS % (AUTO) 61.7 % (42.0-75.0); PLATELET COUNT 141 X10^3/uL (150.0-450.0); RED BLOOD COUNT 2.75 X10^6/uL (4.7-6.0); RED CELL DISTRIBUTION WIDTH 19.3 % (11.6-16.5); WHITE BLOOD COUNT 5.3 X10^3/uL (3.6-10.0)
[2018-04-15 06:27] LABS: HYPOCHROMASIA SLIGHT; PLATELET MORPHOLOGY COMMENT NORMAL (NORMAL)
[2018-04-15 06:28] LABS: ANISOCYTOSIS SLIGHT
[2018-04-15 06:35] LABS: ALANINE AMINOTRANSFERASE 15 Units/L (12-78); ALBUMIN 2.3 g/dL (3.4-5.0); ALKALINE PHOSPHATASE 105 Units/L (46-116); ASPARTATE AMINO TRANSFERASE 13 Units/L (15-37); BLOOD UREA NITROGEN 40 mg/dL (7-18); CALCIUM 8.5 mg/dL (8.5-10.1); CARBON DIOXIDE 23.9 mmol/L (21-32); CHLORIDE 111 mmol/L (98-107); COR CA(FOR HYPOALB) 9.9 mg/dL (8.5-10.1); CREATININE 3.26 mg/dL (0.70-1.30); SODIUM 145 mmol/L (136-145); TOTAL PROTEIN 6.7 g/dL (6.4-8.2); eGFR NON BLACK RACES 20 (>60)
--- NOTE | 2018-04-15 07:19 | RAD ---
HISTORY: Shortness of breath Study: Chest AP portable Comparison: 04/14/2018 Findings: There is a pacemaker present on the left obscuring a portion of the left upper lobe. The heart remains enlarged. Pulmonary venous congestion and mild interstitial edema are unchanged from the prior examination. The aorta is calcified and ectatic. A left pleural effusion is present. IMPRESSION: No significant change from the prior examination Reported By:
[2018-04-15] MEDS ORDERED: NORVASC TAB 2.5 MG ONE (08:42)
--- NOTE | 2018-04-15 08:52 | PCM.PROG ---
Progress Note - Progress Note for Day of Date of Exam: 04/14/18 - Subjective Subjective: WAS ADMITTED FOR CHF, SOB, PNEUMONIA, AND RENAL INSUFFICIENCY. TODAY, HE IS ALERT AND ORIENTED, LYING IN BED ON MORNING ROUNDS. HE CONTINUES WITH SHORTNESS OF BREATH AND A PRODUCTIVE COUGH, BUT REPORTS IMPROVEMENT SINCE YESTERDAY. ON EXAMINATION, HEART IS REGULAR IN RATE AND RHYTHM . BILATERAL LUNGS ARE NOTED WITH SCATTERED WHEEZING. ABDOMEN IS ROUND, SOFT, AND NON-TENDER WITH NORMAL BOWEL SOUNDS NOTED IN ALL QUADRANTS. HIS VITLAS THIS MORNING ARE 98.2-70-20-95%-133/76. LABS WERE OBTAINED. ABNORMAL LAB VALUES INCLUDE THE FOLLOWING: RBC 2.78, HGB 7.9, HCT 25.7, PLT COUNT 144, CHLORIDE 111, BUN 40, CREATININE 3.26, GLUCOSE 102, AST 13, ALBUMIN 2.3. A CHEST XRAY WAS OBTAINED TODAY AND REVEALED: Cardiomegaly with improving mild congestive heart failure. HE IS CURRENTLY RECEIVING IV FORTAZ AND LEVAQUIN WELL RESPIRATORY TREATMENTS AND SUPPLEMENTAL OXYGEN. OTHERWISE, WE WILL CONTINUE WITH CURRENT PLAN OF CARE. WE WILL FOLLOW UP WITH AM LABS AND CONTINUE TO MONITOR. - Past Medical Family Social History Past Med/Fam/Surg Hx: No changes since H&P Allergies: Allergies No Known Drug Allergies Allergy (Verified 04/11/18 14:39) - Review of Systems ROS: No change since H&P - Vital Signs and I&O's Vital Signs: Temperature 98.6 F Pulse Rate [Left Brachial] 70 Pulse Rate [Right Brachial] 90 Pulse Rate 76 Respiratory Rate 20 Blood Pressure [Left Arm] 121/77 Blood Pressure [Right Arm] 113/65 Blood Pressure [Standing] 120/73 Blood Pressure [Sitting] 123/81 Blood Pressure [Lying] 124/81 Blood Pressure 133/75 O2 Sat by Pulse Oximetry 94 Intake and Output: Intake & Output 04/12/18 04/13/18 04/14/18 04/15/18 11:59 11:59 11:59 11:59 Intake Total 350 / 350 1320 / 1320 1460 / 1460 1450 / 1450 Output Total 750 / 750 6250 / 6250 1000 / 1000 700 / 700 Balance -400 / -400 -4930 / -4930 460 / 460 750 / 750 - Physical Exam Oriented: Normal Eyes: Normal Ear: Normal Nose: Normal Throat: Normal Respiratory: Generalized, Wheezes Cardiovascular: Edema (LOWER EXTREMITY 2+ PITTING EDEMA ) : Normal Auscultation: Bowel Sounds: Normal Tenderness: Normal Skin: Normal Musculoskeletal: Normal Psychiatric: Normal Mood Description: Calm Affect: Normal Speech Pattern: Clear, Appropriate - Laboratory and Diagnostics Result Diagrams: 04/15/18 05:10 04/15/18 05:10 Labs: 04/11/18 15:57 Sputum - Expectorated Sputum Sputum Culture - Final 04/11/18 15:57 Sputum - Expectorated Sputum - Final 04/11/18 15:30 Blood Blood Culture - Preliminary 04/11/18 15:22 Blood Blood Culture - Preliminary Laboratory WBC 5.3 X10^3/uL (3.6-10.0) 04/15/18 05:10 RBC 2.75 X10^6/uL (4.7-6.0) L 04/15/18 05:10 Hgb 7.7 g/dL (13.5-18.0) L 04/15/18 05:10 Hct 25.4 % (42.0-54.0) L 04/15/18 05:10 MCV 92.5 fL (80.0-100.0) 04/15/18 05:10 MCH 28.2 pg (27.0-34.0) 04/15/18 05:10 MCHC 30.4 g/dL (33.0-35.0) L 04/15/18 05:10 RDW 19.3 % (11.6-16.5) H 04/15/18 05:10 Plt Count 141 X10^3/uL (150.0-450.0) L 04/15/18 05:10 Plt Count Comment Adequate (ADEQUATE) 04/15/18 05:10 MPV 8.3 fL (7.4-11.0) 04/15/18 05:10 Neut % (Auto) 61.7 % (42.0-75.0) 04/15/18 05:10 Lymph % (Auto) 21.7 % (21.0-51.0) 04/15/18 05:10 [place] % (Auto) 12.0 % (0.0-13.0) 04/15/18 05:10 Eos % (Auto) 4.1 % (0.9-2.9) H 04/15/18 05:10 Baso % (Auto) 0.5 % (0.2-1.0) 04/15/18 05:10 Neut # (Auto) 3.3 x10^3/uL (2.2-4.8) 04/15/18 05:10 Lymph # (Auto) 1.1 X10^3/uL (1.3-2.9) L 04/15/18 05:10 [place] # (Auto) 0.6 x10^3/uL (0.3-0.8) 04/15/18 05:10 Eos # (Auto) 0.2 x10^3/uL (0.0-0.2) 04/15/18 05:10 Baso # (Auto) 0.0 X10^3/uL (0.0-0.1) 04/15/18 05:10 Absolute Nucleated RBC 0.0 /100WBC 04/15/18 05:10 Plt Morphology Comment Normal (NORMAL) 04/15/18 05:10 RBC Morphology Abnormal (NORMAL) 04/15/18 05:10 Hypochromasia Slight A 04/15/18 05:10 Anisocytosis Slight A 04/15/18 05:10 Sample Site Rrad 04/11/18 15:03 ABG pH 7.330 (7.35-7.45) L 04/11/18 15:03 ABG pCO2 40.0 mmHg (35.0-45.0) 04/11/18 15:03 ABG pO2 67.0 mmHg (80.0-100.0) L 04/11/18 15:03 ABG HCO3 21.1 mmol/L (22-26) L 04/11/18 15:03 ABG O2 Saturation 91.0 % (90-100) 04/11/18 15:03 ABG Base Excess -4.5 mmol/L (-2.0-2.0) L 04/11/18 15:03 Artemio Test Pos 04/11/18 15:03 A-a Gradient 83.0 mmHg 04/11/18 15:03 FiO2 28.0 04/11/18 15:03 Blood Gas Comments Pt dora well elj 04/11/18 15:03 Sodium 145 mmol/L (136-145) 04/15/18 05:10 Corrected Sodium TNP 04/15/18 05:10 Potassium 4.9 mmol/L (3.5-5.1) 04/15/18 05:10 Chloride 111 mmol/L (98-107) H 04/15/18 05:10 Carbon Dioxide 23.9 mmol/L (21-32) 04/15/18 05:10 BUN 40 mg/dL (7-18) H 04/15/18 05:10 Creatinine 3.26 mg/dL (0.70-1.30) H 04/15/18 05:10 Est GFR (MDRD) Af Amer 24 (>60) L 04/15/18 05:10 Est GFR (MDRD) Non-Af 20 (>60) L 04/15/18 05:10 Glucose 102 mg/dL (65-99) H 04/15/18 05:10 Lactic Acid 1.3 mmol/L (0.4-2.0) 04/11/18 15:22 Calcium 8.5 mg/dL (8.5-10.1) 04/15/18 05:10 Corrected Calcium 9.9 mg/dL (8.5-10.1) 04/15/18 05:10 Magnesium 1.9 mg/dL (1.7-2.9) 04/12/18 05:30 Total Bilirubin 0.60 mg/dL (0.2-1.0) 04/15/18 05:10 AST 13 Units/L (15-37) L 04/15/18 05:10 ALT 15 Units/L (12-78) 04/15/18 05:10 Alkaline Phosphatase 105 Units/L (46-116) 04/15/18 05:10 Creatine Kinase 79 Units/L (39-308) 04/12/18 05:30 CK-MB (CK-2) 1.4 ng/mL (0-4.0) 04/12/18 05:30 CK/CKMB % Calc 1.8 % (<4) 04/12/18 05:30 Troponin I 0.07 ng/mL (0-1.5) 04/12/18 05:30 B-Natriuretic Peptide 1440 pg/mL (0-79) H* 04/12/18 05:30 Total Protein 6.7 g/dL (6.4-8.2) 04/15/18 05:10 Albumin 2.3 g/dL (3.4-5.0) L 04/15/18 05:10 Globulin 4.4 g/dL (2.5-4.5) 04/15/18 05:10 Albumin/Globulin Ratio 0.5 Ratio (1.1-2.1) L 04/15/18 05:10 Specimen Type Random urine 04/11/18 16:51 Urine Color Yellow (YELLOW) 04/11/18 16:51 Urine Appearance Hazy (CLEAR) 04/11/18 16:51 Urine pH 5.0 (5.0 - 8.0) 04/11/18 16:51 Ur Specific [place] 1.020 (1.000-1.030) 04/11/18 16:51 Urine Protein 2+ (NEGATIVE) 04/11/18 16:51 Urine Glucose (UA) Negative (NEGATIVE) 04/11/18 16:51 Urine Ketones Negative (NEGATIVE) 04/11/18 16:51 Urine Occult Blood 1+ (NEGATIVE) 04/11/18 16:51 Urine Nitrite Negative (NEGATIVE) 04/11/18 16:51 Urine Bilirubin Negative (NEGATIVE) 04/11/18 16:51 Urine Urobilinogen Normal (NORMAL) 04/11/18 16:51 Ur Leukocyte Esterase 1+ (NEGATIVE) 04/11/18 16:51 Urine RBC 3-5 /HPF (NONE SEEN) 04/11/18 16:51 Urine WBC 3-5 /HPF (NONE SEEN) 04/11/18 16:51 Ur Squamous Epith Cells Rare /HPF (NEGATIVE) 04/11/18 16:51 Amorphous Sediment 1+ /HPF (NEGATIVE) 04/11/18 16:51 Urine Bacteria 2+ /HPF (NEGATIVE) 04/11/18 16:51 Ur Culture Indicated? No/not indicated 04/11/18 16:51 - Plan (1) CHF (congestive heart failure) Status: Chronic Qualifiers: Heart failure type: unspecified Heart failure chronicity: acute on chronic Qualified Code(s): I50.9 - Heart failure, unspecified Plan: LASIX 40MG IV BID, CONTINUE TO MONITOR (2) Pneumonia Status: Acute Qualifiers: Pneumonia type: due to unspecified organism Laterality: unspecified laterality Lung location: lower lobe of lung Qualified Code(s): J18.1 - Lobar pneumonia, unspecified organism Plan: IV FORTAZ, IV LEVAQUIN, RESPIRATORY TX, SUPPLEMENTAL OXYGEN, CONTINUE TO MONITOR (3) Shortness of breath Status: Acute (4) CKD (chronic kidney disease) Status: Chronic Qualifiers: Chronic kidney disease stage: unspecified stage Qualified Code(s): N18.9 - Chronic kidney disease, unspecified (5) Anemia Status: Acute Qualifiers: Anemia type: iron deficiency Plan: CONTINUE TO MONITOR
[2018-04-15] MEDS: DUONEB 0.5 MG/3 MG NEB SCH ×2 (09:05→12:10)
[2018-04-15] MEDS: COREG TAB 25 MG PO SCH (09:19)
[2018-04-15] MEDS: ECOTRIN TAB 325 MG PO SCH (09:19)
[2018-04-15] MEDS: PEPCID TAB 20 MG PO SCH (09:19)
[2018-04-15] MEDS: FORTAZ or TAZICEF VIAL INJ IVP SCH (09:19)
[2018-04-15] MEDS: LEVAQUIN PREMIX IV 250 MG 250 MG/50 ML BAG IV SCH (09:19)
[2018-04-15] MEDS: ZYLOPRIM PO SCH (09:19)
[2018-04-15] MEDS: NORVASC TAB 2.5 MG PO SCH (09:19)
[2018-04-15 12:29] VITALS: BP 134/81
== END 2018-04-15 14:25 | disposition hospice, home (50) | DRG 291 ==
LOC: ER 14:37 → MED/SURG 17:44
PROVIDERS: ADMIT Internal Medicine; ATTEND Internal Medicine
DX: N17.8 Other acute kidney failure; Z95.1 Presence of aortocoronary bypass graft; N18.9 Chronic kidney disease, unspecified; J44.9 Chronic obstructive pulmonary disease, unspecified; J18.8 Other pneumonia, unspecified organism; Z95.0 Presence of cardiac pacemaker; E78.2 Mixed hyperlipidemia; I50.9 Heart failure, unspecified; K21.9 Gastro-esophageal reflux disease without esophagitis; I25.10 Atherosclerotic heart disease of native coronary artery without angina pectoris; I12.9 Hypertensive chronic kidney disease with stage 1 through stage 4 chronic kidney disease, or unspecified chronic kidney disease; R94.31 Abnormal electrocardiogram [ECG] [EKG]; I51.7 Cardiomegaly; J90 Pleural effusion, not elsewhere classified; R06.02 Shortness of breath
CPT/HCPCS: 36415; 36600; 71010; 71045; 80053; 81001; 82550; 82553; 82803; 83605; 83735; 83880; 84484; 85025; 87040; 87070; 87205; 93005; 94640; 94760; 96365; 96374; 96375; 99282; 99284; A4222; J0456; J0696; J0713; J0885; J1940; J1956; J2270; J7040; J7050; J7620